=== PATIENT | female | born 1970 | race Caucasian/White ===

== ENCOUNTER 2016-09-13 16:45 | Inpatient (IN) | payer OTHER ==
[2016-09-13 16:45] VITALS: BMI 23.3
[2016-09-13] MEDS ORDERED: Sodium Chloride 0.9% 1,000 ML IV STA ×2 (18:17→21:55)
--- NOTE | 2016-09-13 18:23 | ED PDOC ---
HPI: General Adult Time Seen by Provider: 09/13/16 18:09 Chief Complaint (Nursing): Back Pain Chief Complaint (Provider): LLQ Pain/Back Pain/Fever History Per: Patient History/Exam Limitations: no limitations Onset/Duration Of Symptoms: Days (x4) Current Symptoms Are (Timing): Still Present Additional Complaint(s): 18:10 Amna Pompa is a 45 year old female with a history of kidney stones that presents to the ED with a chief complaint lower abdominal pain that radiates to her back, along with an associated fever and diffuse myalgias. Patient states that she woke up yesterday morning with a fever and headache, and took Tylenol later in the day in an attempt to relieve her pain, but that it persisted nonetheless. She denies experiencing dysuria. PMD: Obi Guillen Past Medical History Reviewed: Historical Data, Nursing Documentation, Vital Signs Vital Signs: Last Vital Signs Temp 99.8 F H 09/16/16 07:51 Pulse 73 09/16/16 07:51 Resp 20 09/16/16 07:51 BP 107/70 09/16/16 07:51 Pulse Ox 97 09/16/16 07:51 - Medical History PMH: Kidney Stones - Surgical History Surgical History: - Family History Family History: States: Unknown Family Hx - Immunization History Hx Tetanus Toxoid Vaccination: No Hx Influenza Vaccination: No Hx Pneumococcal Vaccination: No - Home Medications Home Medications: Ambulatory Orders Medication Instructions Recorded Ibuprofen [Advil] 200 mg PO Q8 PRN 02/06/14 Acetaminophen [Tylenol 325mg tab] 650 mg PO Q4 PRN 09/13/16 - Allergies Allergies/Adverse Reactions: Allergies Allergy/AdvReac Type Severity Reaction Status Date / Time No Known Allergies Allergy Verified 09/16/16 15:50 Review of Systems Constitutional: Positive for: Fever, Other (diffuse myalgias) Gastrointestinal: Positive for: Abdominal Pain (lower abdominal pain) Genitourinary Female: Negative for: Dysuria Musculoskeletal: Positive for: Back Pain (lower back pain) Neurological: Positive for: Headache Physical Exam - Reviewed Nursing Documentation Reviewed: Yes Vital Signs Reviewed: Yes - Physical Exam Appears: Positive for: Non-toxic, No Acute Distress Head Exam: Positive for: ATRAUMATIC, NORMOCEPHALIC Skin: Positive for: Normal Color, Warm Gastrointestinal/Abdominal: Positive for: Soft, Tenderness (mild generalized tenderness, most prominent in LLQ). Negative for: Guarding, Rebound Back: Positive for: L CVA Tenderness Neurologic/Psych: Positive for: Alert, Oriented - Laboratory Results Result Diagrams: 09/16/16 05:20 09/16/16 05:20 - ECG O2 Sat by Pulse Oximetry: 98 (RA) Pulse Ox Interpretation: Normal Medical Decision Making Medical Decision Makin:16 Initial Impression: Pyelonephritis vs. UTI vs. Kidney Stone Initial Impression: * CBC * CMP * PTT * PT * Urine * Urine dip * Urine Culture * Urinalysis * Blood Culture * VBG Shock Panel * EKG * CT Scan A/P w/o PO or IV Contrast * Morphine 2 mg IV * Sodium Chloride 1000 mL at 1000 mLs/hr * Tylenol 650 mg PO * Reevaluation Scribe Attestation: Documented by Johanne Keene, acting as a scribe for Maddie Mcdonald MD. Provider Scribe Attestation: All medical record entries made by the Scribe were at my direction and personally dictated by me. I have reviewed the chart and agree that the record accurately reflects my personal performance of the history, physical exam, medical decision making, and the department course for this patient. I have also personally directed, reviewed, and agree with the discharge instructions and disposition Disposition - Clinical Impression Clinical Impression: UTI (urinary tract infection), Sepsis, Pyelonephritis - Disposition Disposition: Transfer of Care Disposition Time: 19:00 Condition: FAIR Patient Signed Over To: Cindy Benitez
[2016-09-13 18:57] LABS: BASO % 0.2 % (0.0-2.0); HEMATOCRIT 37.5 % (34.0-47.0); LYMPH # 0.8 K/uL (1.0-4.3); LYMPH % 5.2 % (20.0-40.0); MEAN CORPUSCULAR HEMOGLOBIN 28.3 pg (27.0-31.0); MEAN CORPUSCULAR HGB CONC 32.2 g/dL (33.0-37.0); MEAN PLATELET VOLUME 8.3 fl (7.2-11.7); MONO # 1.4 K/uL (0.0-0.8); MONO % 8.7 % (0.0-10.0); NEUT # 13.4 K/uL (1.8-7.0); NEUT % 85.9 % (50.0-75.0); NRBC % 0.1 % (0.0-0.0); PLATELET COUNT 229 K/uL (130-400); RED CELL DISTRIBUTION WIDTH 13.1 % (11.5-14.5); WHITE BLOOD COUNT 15.6 K/uL (4.8-10.8)
[2016-09-13 19:06] LABS: VENOUS BLOOD GAS BASE EXCESS 0.3 mmol/L (0.0-2.0); VENOUS BLOOD GAS PCO2 42 mmHg (40-60); VENOUS BLOOD PH 7.39 (7.32-7.43)
[2016-09-13 19:12] LABS: ALKALINE PHOSPHATASE 114 U/L (38-126); ALT/SGPT 23 U/L (9-52); AST/SGOT 29 U/L (14-36); BILIRUBIN,TOTAL 0.9 mg/dl (0.2-1.3); BLOOD UREA NITROGEN 11 mg/dl (7-17); CARBON DIOXIDE 21 mmol/L (22-30); CHLORIDE 104 mmol/L (98-107); GFR AFRICAN-AMERICAN > 60; GLUCOSE,RANDOM 111 mg/dL (65-105); POTASSIUM 3.5 MMOL/L (3.6-5.0); SODIUM 139 mmol/l (132-148); TOTAL PROTEIN 7.6 G/DL (6.3-8.2)
[2016-09-13 19:14] LABS: PARTIAL THROMBOPLASTIN TIME 29.3 SECONDS (23.3-32.5)
[2016-09-13 19:22] LABS: BASOPHIL 1 % (0-2); NEUTROPHIL 85 % (42-75); TOTAL CELLS COUNTED 100
[2016-09-13] MEDS ORDERED: Potassium Chloride 20 mEq ER Tab PO ONE (19:41)
[2016-09-13 19:43] LABS: RBC URINE 6 /hpf (0-3); URINE BACTERIA MOD (<OCC); URINE BILIRUBIN NEGATIVE (NEGATIVE); URINE BLOOD SMALL (NEGATIVE); URINE COLOR AMBER (YELLOW); URINE GLUCOSE (UA) NEG (Normal); URINE KETONE NEGATIVE (NEGATIVE); URINE LEUKOCYTE ESTERASE SMALL Leu/uL (Negative); URINE PROTEIN 30 mg/dL (NEGATIVE); WBC URINE 127 /hpf (0-5)
--- NOTE | 2016-09-13 19:44 | ED PDOC ---
- Laboratory Results Result Diagrams: 09/13/16 18:20 09/13/16 18:20 - ECG O2 Sat by Pulse Oximetry: 98 (RA) - Progress Re-evaluation Time: 22:06 Condition: Re-examined, Improving,but remains with symptoms Medical Decision Making Medical Decision Makin:00 Patient signed over to me by Dr. Maddie Mcdonald pending CT Abdomen and final disposition. FINDINGS: Lower thorax: Minimal atelectasis. ABDOMEN: Liver: Unremarkable. Gallbladder and bile ducts: No calcified stones. No ductal dilation. Pancreas: Unremarkable. No ductal dilation. Spleen: No splenomegaly. Adrenals: No mass. Kidneys and ureters: Apparent minimal stranding about kidneys and proximal ureters, nonspecific. Probable few RIGHT renal cysts. Several renal calculi. No hydronephrosis. Stomach and bowel: No definite mural thickening. No obstruction. Appendix: Normal caliber. No inflammation. PELVIS: Bladder: Unremarkable. No stones. Reproductive: 1.0 x 1.0 x 3.6 cm hypodense lesion within LEFT ovary. RIGHT ovarian follicles. ABDOMEN and PELVIS: Intraperitoneal space: No significant fluid collection. No free air. Bones/joints: No acute fracture. Soft tissues: Tiny umbilical hernia containing fat. Vasculature: Few rounded calcifications within pelvis, likely phleboliths. No aortic aneurysm. Lymph nodes: No pathologically enlarged lymph nodes. IMPRESSION: 1. Probable LEFT ovarian cyst. Consider ultrasound. 2. Nonobstructing renal calculi. 3. Minimal perinephric/periureteral stranding. Correlate with urinalysis to exclude infection. 4. Incidental/non-acute findings are described above Patient has SIRS criteria with UTI and normal lactate. Dx UTI, sepsis. Scribe Attestation: Documented by Johanne Keene, acting as a scribe for Cindy Benitez MD. Provider Scribe Attestation: All medical record entries made by the Scribe were at my direction and personally dictated by me. I have reviewed the chart and agree that the record accurately reflects my personal performance of the history, physical exam, medical decision making, and the department course for this patient. I have also personally directed, reviewed, and agree with the discharge instructions and disposition Disposition Discussed With DrMariam: Obi Guillen Doctor Will See Patient In The: ED Counseled Patient/Family Regarding: Studies Performed, Diagnosis, Need For Followup - Clinical Impression Clinical Impression: UTI (urinary tract infection), Sepsis, Pyelonephritis - POA Present On Arrival: None - Disposition Disposition: Admitted as In-Patient Disposition Time: 20:30 Condition: FAIR
--- NOTE | 2016-09-13 21:31 | CT ---
EXAM: CT Abdomen and Pelvis Without Intravenous Contrast CLINICAL HISTORY: 45 years old, female; Pain; Abdominal pain; Localized; Left; Additional info: L flank pain, fever, hematuria TECHNIQUE: Axial computed tomography images of the abdomen and pelvis without intravenous contrast. This CT exam was performed using one or more of the following dose reduction techniques: automated exposure control, adjustment of the mA and/or kV according to patient size, and/or use of iterative reconstruction technique. Coronal and sagittal reformatted images were created and reviewed. COMPARISON: CT - ABD PELVIS W/O PO OR IV CONT 12/05/2015 11:42:11 PM FINDINGS: Lower thorax: Minimal atelectasis. ABDOMEN: Liver: Unremarkable. Gallbladder and bile ducts: No calcified stones. No ductal dilation. Pancreas: Unremarkable. No ductal dilation. Spleen: No splenomegaly. Adrenals: No mass. Kidneys and ureters: Apparent minimal stranding about kidneys and proximal ureters, nonspecific. Probable few RIGHT renal cysts. Several renal calculi. No hydronephrosis. Stomach and bowel: No definite mural thickening. No obstruction. Appendix: Normal caliber. No inflammation. PELVIS: Bladder: Unremarkable. No stones. Reproductive: 1.0 x 1.0 x 3.6 cm hypodense lesion within LEFT ovary. RIGHT ovarian follicles. ABDOMEN and PELVIS: Intraperitoneal space: No significant fluid collection. No free air. Bones/joints: No acute fracture. Soft tissues: Tiny umbilical hernia containing fat. Vasculature: Few rounded calcifications within pelvis, likely phleboliths. No aortic aneurysm. Lymph nodes: No pathologically enlarged lymph nodes. IMPRESSION: 1. Probable LEFT ovarian cyst. Consider ultrasound. 2. Nonobstructing renal calculi. 3. Minimal perinephric/periureteral stranding. Correlate with urinalysis to exclude infection. 4. Incidental/non-acute findings are described above.
[2016-09-13] MEDS ORDERED: Piperacillin/Tazobact 3.375 GM in Sodium Chloride 0.9% 100 ML IVPB SCH (23:45)
[2016-09-14] MEDS: Dextrose 5%/0.9% NS 1,000 ML IV SCH ×3 (02:33→23:20)
[2016-09-14 07:40] LABS: BLOOD UREA NITROGEN 9 mg/dl (7-17); CALCIUM 8.1 mg/dL (8.4-10.2); CARBON DIOXIDE 19 mmol/L (22-30); CHLORIDE 109 mmol/L (98-107); GFR AFRICAN-AMERICAN > 60; GLUCOSE,RANDOM 118 mg/dL (65-105); HEMATOCRIT 33.9 % (34.0-47.0); MEAN CORPUSCULAR HGB CONC 31.8 g/dL (33.0-37.0); POTASSIUM 3.4 MMOL/L (3.6-5.0); RED CELL DISTRIBUTION WIDTH 13.2 % (11.5-14.5); SODIUM 140 mmol/l (132-148); WHITE BLOOD COUNT 19.3 K/uL (4.8-10.8)
[2016-09-14] MEDS: Enoxaparin 40 mg Syringe SC SCH (09:59)
--- NOTE | 2016-09-14 10:29 | CP.PCM.CON ---
History of Present Illness - History of Present Illness History of Present Illness: 45 year old female with a history of kidney stones that presents to the ED with a chief complaint lower abdominal pain that radiates to her back, along with an associated fever and diffuse myalgias. Patient states that she woke up Tuesday morning with a fever and headache, no neck stiffness no photophobia no burning + flank pain > left Has renal stranding on CT s/p code sepsis Review of Systems - Constitutional Constitutional: As Per HPI, Anorexia, Malaise - EENT Eyes: absent: As Per HPI, Blind Spots, Blurred Vision, Change in Vision, Decreased Night Vision, Diplopia, Discharge, Dry Eye, Exophthalmos, Floaters, Irritation, Itchy Eyes, Loss of Peripheral Vision, Pain, Photophobia, Requires Corrective Lenses, Sees Flashes, Spots in Vision, Tunnel Vision, Other Visual Disturbances, Loss of Vision, Other Ears: absent: As Per HPI, Decreased Hearing, Ear Discharge, Ear Pain, Tinnitus, Abnormal Hearing, Disequilibrium, Dizziness, Other Nose/Mouth/Throat: absent: As Per HPI, Epistaxis, Nasal Congestion, Nasal Discharge, Nasal Obstruction, Nasal Trauma, Nose Pain, Post Nasal Drip, Sinus Pain, Sinus Pressure, Bleeding Gums, Change in Voice, Dental Pain, Dry Mouth, Dysphagia, Halitosis, Hoarsness, Lip Swelling, Mouth Lesions, Mouth Pain, Odynophagia, Sore Throat, Throat Swelling, Tongue Swelling, Facial Pain, Neck Pain, Neck Mass, Other - Breasts Breasts: absent: As Per HPI, Change in Shape, Mass, Pain, Nipple Discharge, Nipple Inversion, Skin Changes, Swelling, Other - Cardiovascular Cardiovascular: absent: As Per HPI, Acrocyanosis, Chest Pain, Chest Pain at Rest , Chest Pain with Activity, Claudication, Diaphoresis, Dyspnea, Dyspnea on Exertion, Edema, Irregular Heart Rhythm, Pain Radiating to Arm/Neck/Jaw, Leg Edema, Leg Ulcers, Lightheadedness, Orthopnea, Palpitations, Paroxysmal Nocturnal Dyspnea, Pedal Edema, Radiating Pain, Rapid Heart Rate, Slow Heart Rate, Syncope, Other - Respiratory Respiratory: absent: As Per HPI, Cough, Dyspnea, Hemoptysis, Dyspnea on Exertion , Wheezing, Snoring, Stridor, Pain on Inspiration, Chest Congestion, Excessive Mucous Production, Change in Mucous Color, Pain with Coughing, Other - Gastrointestinal Gastrointestinal: As Per HPI - Genitourinary Genitourinary: As Per HPI - Reproductive: Female Reproductive:Female: absent: As Per HPI, Amenorrhea, Amenorrhea/ Control, Currently Menstual, Cycle <21 Days, Cycle >35 Days, Cycle Variable, Menses 1-7 Days, Menses >/= 8 Days, Menses Variable, Cycle > 4 Weeks Between, No Menses for 6 Months, Heavy Menses, Light Menses, Normal Menses, Spotting Between Cycles , S/P Hysterectomy, Menopausal, Post Menopausal, Premenarche, Abnormal Vaginal Bleeding, Dysmenorrhea, Dyspareunia, Genital Lesions, Genital Pruritis, Pelvic Pain, Prolapse Symptoms, Sexual Dysfunction, Vaginal Discharge, Vaginal Dryness , Vaginal Odor, Vaginal Pruritis, Other - Menstruation Menstruation: absent: As Per HPI, Amenorrhea, Amenorrhea/ Control, Currently Menstual, Cycle <21 Days, Cycle >35 Days, Cycle Variable, Menses 1-7 Days, Menses >/= 8 Days, Menses Variable, Cycle > 4 Weeks Between, No Menses for 6 Months, Heavy Menses, Light Menses, Normal Menses, Spotting Between Cycles , S/P Hysterectomy, Menopausal, Post Menopausal, Premenarche, Abnormal Vaginal Bleeding, Dysmenorrhea, Other - Musculoskeletal Musculoskeletal: absent: As Per HPI, Abnormal Gait, Arthralgias, Atrophy, Back Pain, Deformity, Joint Swelling, Limited Range of Motion, Loss of Height, Muscle Cramps, Muscle Weakness, Myalgias, Neck Pain, Numbness, Radiating Pain into Limb, Stiffness, Tingling, Other - Integumentary Integumentary: absent: As Per HPI, Acne, Alopecia, Bleeding Lesions, Change in Hair, Change in Nails, Change in Pigmentation, Changing Lesions, Dry Skin, Erythema, Furuncle, Hirsutism, Lesions, New Lesions, Non-Healing Lesions, Photosensitivity, Pruritus, Rash, Skin Pain, Skin Ulcer, Sores, Striae, Swelling , Unusual Bruising, Wounds, Jaundice, Other - Neurological Neurological: absent: As Per HPI, Abnormal Gait, Abnormal Hearing, Abnormal Movements, Abnormal Speech, Behavioral Changes, Burning Sensations, Confusion, Convulsions, Disequilibrium, Dizziness, Numbness, Focal Weakness, Frequent Falls , Headaches, Lack of Coordination, Loss of Vision, Memory Loss, Paresthesias, Radicular Pain, Restless Legs, Sensory Deficit, Syncope, Tingling, Tremor, Vertigo, Weakness, Other Visual Disturbances, Other - Psychiatric Psychiatric: absent: As Per HPI, Abnormal Sleep Pattern, Anhedonia, Anxiety, Auditory Hallucinations, Behavioral Changes, Change in Appetite, Change in Libido, Confusion, Depression, Difficulty Concentrating, Hallucinations, Homicidal Ideation, Hopelessness, Irritability, Memory Loss, Mood Swings, Panic Attacks, Paranoia, Suicidal Ideation, Visual Hallucinations, Tactile Hallucinations, Other - Endocrine Endocrine: absent: As Per HPI, Change in Body Appearance, Change in Libido, Cold Intolorance, Deepening of Voice, Excessive Sweating, Fatigue, Flushing, Heat Intolorance, Increase in Ring/Shoe/Hat Size, Palpitations, Polydipsia, Polyphagia, Polyuria, Other - Hematologic/Lymphatic Hematologic: absent: As Per HPI, Easy Bleeding, Easy Bruising, Lymphadenopathy, Other Past Patient History - Infectious Disease Hx of Infectious Diseases: None - Past Medical History & Family History Past Medical History?: Yes - Past Social History Smoking Status: Never Smoked - CARDIAC Hx Cardiac Disorders: No - RENAL Hx Kidney Stones: Yes (6 years ago) - MUSCULOSKELETAL/RHEUMATOLOGICAL Hx Back Pain: Yes (acute, started 09/13/16) Hx Falls: Yes - PSYCHIATRIC Hx Substance Use: No - SURGICAL HISTORY Hx Surgeries: Yes Hx Section: Yes (x 2) - ANESTHESIA Hx Anesthesia: Yes Hx Anesthesia Reactions: No Hx Malignant Hyperthermia: No Meds Allergies/Adverse Reactions: Allergies Allergy/AdvReac Type Severity Reaction Status Date / Time No Known Allergies Allergy Verified 09/13/16 17:07 - Medications Medications: Current Medications Acetaminophen (Tylenol 325mg Tab) 650 mg PO Q6 PRN PRN Reason: Pain, Mild (1-3) Last Admin: 09/14/16 06:28 Dose: 650 mg Enoxaparin Sodium (Lovenox) 40 mg SC DAILY [facility] PRN Reason: Protocol Last Admin: 09/14/16 09:59 Dose: 40 mg Piperacillin Sod/Tazobactam (Sod 3.375 gm/ Sodium Chloride) 100 mls @ 100 mls/ hr IVPB Q12 [facility] Last Admin: 09/14/16 00:04 Dose: 100 mls/hr Dextrose/Sodium Chloride (Dextrose 5%/0.9% Ns 1000 Ml) 1,000 mls @ 85 mls/hr IV [id number] [facility] Stop: 09/14/16 23:46 Last Admin: 09/14/16 02:33 Dose: 85 mls/hr Pantoprazole Sodium (Protonix Inj) 40 mg IVP DAILY [facility] Last Admin: 09/14/16 10:00 Dose: 40 mg Physical Exam - Constitutional Appears: Toxic - Head Exam Head Exam: ATRAUMATIC, NORMAL INSPECTION, NORMOCEPHALIC - Eye Exam Eye Exam: EOMI, PERRL. absent: Scleral icterus - ENT Exam ENT Exam: Mucous Membranes Dry, Normal External Ear Exam - Neck Exam Neck exam: Negative for: Lymphadenopathy, Thyromegaly - Respiratory Exam Respiratory Exam: Decreased Breath Sounds, Clear to Auscultation Bilateral - Cardiovascular Exam Cardiovascular Exam: REGULAR RHYTHM, +S1, +S2 - GI/Abdominal Exam GI & Abdominal Exam: Diminished Bowel Sounds, Distended, Guarding, Soft. absent : Organomegaly, Rebound, Rigid - Rectal Exam Rectal Exam: Deferred - Exam Exam: NORMAL INSPECTION - Extremities Exam Extremities exam: Positive for: pedal pulses present. Negative for: calf tenderness, pedal edema, tenderness - Back Exam Back exam: CVA tenderness (L), CVA tenderness (R). absent: paraspinal tenderness, rash noted - Neurological Exam Neurological exam: Alert, CN II-XII Intact, Oriented x3, Reflexes Normal - Psychiatric Exam Psychiatric exam: Normal Mood - Skin Skin Exam: Dry, Intact Results - Vital Signs Recent Vital Signs: Last Vital Signs Temp 100.5 F H 09/14/16 08:34 Pulse 95 H 09/14/16 08:34 Resp 20 09/14/16 08:34 BP 92/60 L 09/14/16 08:34 Pulse Ox 98 09/14/16 08:34 - Labs Result Diagrams: 09/14/16 05:35 09/14/16 05:35 Labs: Laboratory Results - last 24 hr 09/14/16 05:35 WBC 19.3 H RBC 3.86 Hgb 10.8 L Hct 33.9 L MCV 88.0 MCH 28.0 MCHC 31.8 L RDW 13.2 Plt Count 215 Sodium 140 Potassium 3.4 L Chloride 109 H Carbon Dioxide 19 L Anion Gap 15 BUN 9 Creatinine 0.6 L Est GFR ( Amer) > 60 Est GFR (Non-Af Amer) > 60 Random Glucose 118 H Calcium 8.1 L Assessment & Plan (1) Pyelonephritis Status: Acute (2) Sepsis Status: Acute (3) UTI (urinary tract infection) Status: Acute (4) Abdominal pain Status: Acute (5) Ovarian cyst Status: Acute (6) Renal calculi Status: Acute - Assessment and Plan (Free Text) Assessment: cont iv antibotics stat eval
[2016-09-14] MEDS: Meropenem 1 GM in Sodium Chloride 0.9% 100 ML IVPB SCH ×2 (11:34→16:29)
[2016-09-14] MEDS ORDERED: Potassium Chloride 20 mEq/15 ml LIQ UD PO ONE ×2 (14:01→15:09)
--- NOTE | 2016-09-14 14:20 | US ---
HISTORY: ovarian cyst COMPARISON: CT abdomen and pelvis from 09/13/2016 TECHNIQUE: Transabdominal pelvic ultrasound was performed. FINDINGS: UTERUS: Measures 8.7 x 4.6 x 6.0 cm. Anteverted and lobular in appearance. There is a 2.7 x 2.9 x 2.7 cm intramural fibroid in the midbody of the uterus along the anterior wall and to the right. ENDOMETRIUM: Measures 4 mm in diameter. Unremarkable. CERVIX: No cervical abnormality identified. RIGHT OVARY: Measures 2.7 x 2.1 x 2.1 cm. No solid mass. Normal flow. There is a 1.5 x 1.5 x 1.4 cm cyst. LEFT OVARY: Measures 4.7 x 3.7 x 3.9 cm. No solid mass. Normal flow. There is a 3.1 x 2.7 x 3.3 cm simple cyst. FREE FLUID: No significant free fluid noted. OTHER FINDINGS: None. IMPRESSION: 1. Solitary 2.9 cm intramural fibroid in the midbody of the uterus along the anterior wall and to the right. 2. 3.3 cm simple cyst in the left ovary.
[2016-09-14] MEDS ORDERED: Mineral Oil Enema 135 ml PR ONE (15:11)
--- NOTE | 2016-09-14 15:22 | CP.PCM.HP ---
History of Present Illness - History of Present Illness History of Present Illness: Patient presented in ER with general malaise, severe abdominal pain and lt flank pain irradiated to the groin. Hx of fever, shaking chills, urgency,CVA tenderness, poor appetite, constipation. Patient has long hx of nephrolytiasis, she underwent to lythothripsis. Still c/o severe pain in the lt flank. The ctscan was not performed with iv contrast, bat reveled same changes typical of pyelonephritis. Will change to liquid diet continue antibx no appendix pathology is present in the ct scan. If persistent pain will repeat the radiological test with iv studies. Still require analgesic rx. Present on Admission - Present on Admission Any Indicators Present on Admission: No Review of Systems - Constitutional Constitutional: Chills, Fever - EENT Eyes: As Per HPI Nose/Mouth/Throat: As Per HPI - Cardiovascular Cardiovascular: As Per HPI - Respiratory Respiratory: As Per HPI - Gastrointestinal Gastrointestinal: As Per HPI - Genitourinary Genitourinary: Dysuria, Flank Pain, Urinary Frequency, Urinary Urgency - Musculoskeletal Musculoskeletal: As Per HPI - Integumentary Integumentary: As Per HPI - Neurological Neurological: As Per HPI - Psychiatric Psychiatric: As Per HPI Past Patient History - Infectious Disease Hx of Infectious Diseases: None - Past Medical History & Family History Past Medical History?: Yes - Past Social History Smoking Status: Never Smoked - CARDIAC Hx Cardiac Disorders: No - RENAL Hx Kidney Stones: Yes (6 years ago) - MUSCULOSKELETAL/RHEUMATOLOGICAL Hx Back Pain: Yes (acute, started 09/13/16) Hx Falls: Yes - PSYCHIATRIC Hx Substance Use: No - SURGICAL HISTORY Hx Surgeries: Yes Hx Section: Yes (x 2) - ANESTHESIA Hx Anesthesia: Yes Hx Anesthesia Reactions: No Hx Malignant Hyperthermia: No Meds Allergies/Adverse Reactions: Allergies Allergy/AdvReac Type Severity Reaction Status Date / Time No Known Allergies Allergy Verified 09/13/16 17:07 Physical Exam - Constitutional Appears: In Acute Distress - Head Exam Head Exam: ATRAUMATIC, NORMAL INSPECTION, NORMOCEPHALIC - Eye Exam Eye Exam: EOMI, Normal appearance, PERRL Pupil Exam: NORMAL ACCOMODATION - ENT Exam ENT Exam: Mucous Membranes Moist - Neck Exam Neck exam: Positive for: Normal Inspection - Respiratory Exam Respiratory Exam: Clear to Auscultation Bilateral - Cardiovascular Exam Cardiovascular Exam: REGULAR RHYTHM, +S1, +S2 - GI/Abdominal Exam GI & Abdominal Exam: Tenderness Additional comments: + CVT with lt flank tenderness. - Rectal Exam Rectal Exam: Deferred - Extremities Exam Extremities exam: Positive for: normal inspection - Neurological Exam Neurological exam: Alert, CN II-XII Intact, Reflexes Normal - Psychiatric Exam Psychiatric exam: Anxious - Skin Skin Exam: Normal Color Results - Vital Signs Recent Vital Signs: Last Vital Signs Temp 98.3 F 09/14/16 11:52 Pulse 95 H 09/14/16 08:34 Resp 20 09/14/16 08:34 BP 92/60 L 09/14/16 08:34 Pulse Ox 98 09/14/16 08:34 - Labs Result Diagrams: 09/14/16 05:35 09/14/16 14:30 Labs: Laboratory Results - last 24 hr 09/14/16 09/14/16 05:35 14:30 WBC 19.3 H RBC 3.86 Hgb 10.8 L Hct 33.9 L MCV 88.0 MCH 28.0 MCHC 31.8 L RDW 13.2 Plt Count 215 Sodium 140 Potassium 3.4 L 3.1 L Chloride 109 H Carbon Dioxide 19 L Anion Gap 15 BUN 9 Creatinine 0.6 L Est GFR ( Amer) > 60 Est GFR (Non-Af Amer) > 60 Random Glucose 118 H Calcium 8.1 L Assessment & Plan (1) Pyelonephritis Status: Acute (2) Sepsis Status: Suspected (3) UTI (urinary tract infection) Status: Acute (4) Abdominal pain Status: Acute (5) Hypokalemia Status: Acute (6) Ovarian cyst Status: Chronic (7) Renal calculi Status: Chronic (8) Constipation Status: Acute (9) Fecal impaction Status: Acute - Assessment and Plan (Free Text) Plan: As above
--- NOTE | 2016-09-14 16:19 | RAD ---
PROCEDURE: CHEST RADIOGRAPH, 1 VIEW HISTORY: r/o pneumonia COMPARISON: None available. FINDINGS: LUNGS: The lungs are clear. PLEURA: No pneumothorax or pleural fluid seen. CARDIOVASCULAR: Normal. OSSEOUS STRUCTURES: No significant abnormalities. VISUALIZED UPPER ABDOMEN: Normal. OTHER FINDINGS: None. IMPRESSION: No active pulmonary disease.
--- NOTE | 2016-09-14 20:09 | CARD ---
APPROVED REPORT EKG Measurement Heart [id number] <Conclusion> Normal sinus rhythm Possible Left atrial enlargement Borderline ECG
[2016-09-14 21:14] LABS: MAGNESIUM 1.9 MG/DL (1.6-2.3)
[2016-09-14 21:37] LABS: T4 5.63 ug/dl (5.5-11.0)
[2016-09-14 21:51] LABS: THYROID STIMULATING HORMONE 3.09 mIU/ML (0.46-4.68)
[2016-09-15] MEDS: Meropenem 1 GM in Sodium Chloride 0.9% 100 ML IVPB SCH ×3 (00:53→16:15)
[2016-09-15 08:14] LABS: HEMATOCRIT 31.5 % (34.0-47.0); MEAN CELL VOLUME 88.2 fl (81.0-99.0); MEAN CORPUSCULAR HEMOGLOBIN 28.3 pg (27.0-31.0); MEAN CORPUSCULAR HGB CONC 32.1 g/dL (33.0-37.0); RED CELL DISTRIBUTION WIDTH 13.3 % (11.5-14.5); WHITE BLOOD COUNT 13.5 K/uL (4.8-10.8)
[2016-09-15 08:16] LABS: BLOOD UREA NITROGEN 4 mg/dl (7-17); CALCIUM 8.2 mg/dL (8.4-10.2); CARBON DIOXIDE 24 mmol/L (22-30); CHLORIDE 109 mmol/L (98-107); GFR AFRICAN-AMERICAN > 60; GLUCOSE,RANDOM 100 mg/dL (65-105); POTASSIUM 3.6 MMOL/L (3.6-5.0); SODIUM 143 mmol/l (132-148)
[2016-09-15] MEDS: Enoxaparin 40 mg Syringe SC SCH (08:48)
[2016-09-15] MEDS: Dextrose 5%/0.9% NS 1,000 ML IV SCH ×2 (08:52→20:36)
--- NOTE | 2016-09-15 09:51 | CP.PCM.PN ---
Subjective - Date & Time of Evaluation Date of Evaluation: 09/14/16 Time of Evaluation: 16:00 - Subjective Subjective: Urology. Pt seen today for uti/pyelonephritis.First such episode for this patient. She has no dysuria or difficulty voiding. Flank discomfort deminished. She is on iv antibiotic coverage with Urine C/S pending. Cont current tx protocol Objective - Vital Signs/Intake and Output Vital Signs (last 24 hours): Temp Pulse Resp BP Pulse Ox 99.5 F 99 H 20 108/67 90 L 09/15/16 08:14 09/15/16 08:14 09/15/16 08:14 09/15/16 08:14 09/15/16 08:14 - Medications Medications: Current Medications Acetaminophen (Tylenol 325mg Tab) 650 mg PO Q4 PRN PRN Reason: Pain, Mild (1-3) Last Admin: 09/15/16 00:52 Dose: 650 mg Docusate Sodium (Colace) 100 mg PO BID [facility] Last Admin: 09/15/16 08:49 Dose: 100 mg Enoxaparin Sodium (Lovenox) 40 mg SC DAILY [facility] PRN Reason: Protocol Last Admin: 09/15/16 08:48 Dose: 40 mg Meropenem 1 gm/ Sodium (Chloride) 100 mls @ 100 mls/hr IVPB Q8 [facility] Last Admin: 09/15/16 08:48 Dose: 100 mls/hr Pantoprazole Sodium (Protonix Inj) 40 mg IVP DAILY [facility] Last Admin: 09/15/16 08:45 Dose: 40 mg Tramadol HCl (Ultram) 50 mg PO Q6 PRN PRN Reason: Pain, moderate (4-7) Last Admin: 09/15/16 06:33 Dose: 50 mg - Labs Labs: 09/15/16 05:40 09/15/16 05:40 PT 11.7 SECONDS (9.6-11.2) H 09/13/16 18:20 INR 1.13 (0.92-1.08) H 09/13/16 18:20 APTT 29.3 SECONDS (23.3-32.5) 09/13/16 18:20
--- NOTE | 2016-09-15 12:27 | CP.PCM.PN ---
Subjective - Date & Time of Evaluation Date of Evaluation: 09/15/16 Time of Evaluation: 12:30 - Subjective Subjective: Patient general condition improving same abdominal discomfort. The culture are positive for gram neg. Patient with severe pyelinephritis will continue iv anti bx for at list 10 days. Objective - Vital Signs/Intake and Output Vital Signs (last 24 hours): Temp Pulse Resp BP Pulse Ox 99.5 F 99 H 20 108/67 90 L 09/15/16 08:14 09/15/16 08:14 09/15/16 08:14 09/15/16 08:14 09/15/16 08:14 - Medications Medications: Current Medications Acetaminophen (Tylenol 325mg Tab) 650 mg PO Q4 PRN PRN Reason: Pain, Mild (1-3) Last Admin: 09/15/16 00:52 Dose: 650 mg Docusate Sodium (Colace) 100 mg PO BID [facility] Last Admin: 09/15/16 08:49 Dose: 100 mg Enoxaparin Sodium (Lovenox) 40 mg SC DAILY [facility] PRN Reason: Protocol Last Admin: 09/15/16 08:48 Dose: 40 mg Meropenem 1 gm/ Sodium (Chloride) 100 mls @ 100 mls/hr IVPB Q8 [facility] Last Admin: 09/15/16 08:48 Dose: 100 mls/hr Pantoprazole Sodium (Protonix Inj) 40 mg IVP DAILY [facility] Last Admin: 09/15/16 08:45 Dose: 40 mg Tramadol HCl (Ultram) 50 mg PO Q6 PRN PRN Reason: Pain, moderate (4-7) Last Admin: 09/15/16 06:33 Dose: 50 mg - Labs Labs: 09/15/16 05:40 09/15/16 05:40 PT 11.7 SECONDS (9.6-11.2) H 09/13/16 18:20 INR 1.13 (0.92-1.08) H 09/13/16 18:20 APTT 29.3 SECONDS (23.3-32.5) 09/13/16 18:20 - Constitutional Appears: No Acute Distress - Head Exam Head Exam: ATRAUMATIC, NORMAL INSPECTION - Eye Exam Eye Exam: Normal appearance Pupil Exam: NORMAL ACCOMODATION - ENT Exam ENT Exam: Mucous Membranes Moist - Neck Exam Neck Exam: Full ROM - Respiratory Exam Respiratory Exam: Clear to Ausculation Bilateral - Cardiovascular Exam Cardiovascular Exam: REGULAR RHYTHM, +S1, +S2 - GI/Abdominal Exam GI & Abdominal Exam: Tenderness - Back Exam Back Exam: NORMAL INSPECTION - Neurological Exam Neurological Exam: Alert, Awake, CN II-XII Intact, Oriented x3 - Psychiatric Exam Psychiatric exam: Normal Affect - Skin Skin Exam: Normal Color Assessment and Plan (1) Pyelonephritis Status: Acute (2) Sepsis Status: Suspected (3) UTI (urinary tract infection) Status: Acute (4) Abdominal pain Status: Acute (5) Hypokalemia Status: Acute (6) Ovarian cyst Status: Chronic (7) Renal calculi Status: Chronic (8) Constipation Status: Acute (9) Fecal impaction Status: Acute (10) Euthyroid sick syndrome Status: Acute - Assessment and Plan (Free Text) Plan: Continue present rx.
--- NOTE | 2016-09-15 16:31 | CP.PCM.PN ---
Subjective - Date & Time of Evaluation Date of Evaluation: 09/15/16 Time of Evaluation: 08:00 - Subjective Subjective: rx in progress fever + c/s pending merrem renewed Objective - Vital Signs/Intake and Output Vital Signs (last 24 hours): Temp Pulse Resp BP Pulse Ox 99.5 F 99 H 20 108/67 90 L 09/15/16 08:14 09/15/16 08:14 09/15/16 08:14 09/15/16 08:14 09/15/16 08:14 - Medications Medications: Current Medications Acetaminophen (Tylenol 325mg Tab) 650 mg PO Q4 PRN PRN Reason: Pain, Mild (1-3) Last Admin: 09/15/16 00:52 Dose: 650 mg Docusate Sodium (Colace) 100 mg PO BID [facility] Last Admin: 09/15/16 08:49 Dose: 100 mg Enoxaparin Sodium (Lovenox) 40 mg SC DAILY [facility] PRN Reason: Protocol Last Admin: 09/15/16 08:48 Dose: 40 mg Meropenem 1 gm/ Sodium (Chloride) 100 mls @ 100 mls/hr IVPB Q8 [facility] Last Admin: 09/15/16 16:15 Dose: 100 mls/hr Pantoprazole Sodium (Protonix Inj) 40 mg IVP DAILY [facility] Last Admin: 09/15/16 08:45 Dose: 40 mg Tramadol HCl (Ultram) 50 mg PO Q6 PRN PRN Reason: Pain, moderate (4-7) Last Admin: 09/15/16 06:33 Dose: 50 mg - Labs Labs: 09/15/16 05:40 09/15/16 05:40 PT 11.7 SECONDS (9.6-11.2) H 09/13/16 18:20 INR 1.13 (0.92-1.08) H 09/13/16 18:20 APTT 29.3 SECONDS (23.3-32.5) 09/13/16 18:20 - Constitutional Appears: Non-toxic, Chronically Ill - Head Exam Head Exam: NORMOCEPHALIC - Eye Exam Eye Exam: absent: Scleral icterus - ENT Exam ENT Exam: Mucous Membranes Dry - Neck Exam Neck Exam: absent: Lymphadenopathy - Respiratory Exam Respiratory Exam: Decreased Breath Sounds - Cardiovascular Exam Cardiovascular Exam: REGULAR RHYTHM - GI/Abdominal Exam GI & Abdominal Exam: Distended Assessment and Plan (1) Pyelonephritis Status: Acute (2) Sepsis Status: Suspected (3) UTI (urinary tract infection) Status: Acute (4) Abdominal pain Status: Acute (5) Ovarian cyst Status: Chronic (6) Renal calculi Status: Chronic
[2016-09-16] MEDS: Meropenem 1 GM in Sodium Chloride 0.9% 100 ML IVPB SCH ×2 (00:50→08:48)
[2016-09-16] MEDS: Dextrose 5%/0.9% NS 1,000 ML IV SCH (05:52)
[2016-09-16 07:35] LABS: HEMATOCRIT 29.9 % (34.0-47.0); MEAN CELL VOLUME 87.1 fl (81.0-99.0); MEAN CORPUSCULAR HEMOGLOBIN 28.2 pg (27.0-31.0); MEAN CORPUSCULAR HGB CONC 32.4 g/dL (33.0-37.0); RED CELL DISTRIBUTION WIDTH 13.1 % (11.5-14.5); WHITE BLOOD COUNT 8.1 K/uL (4.8-10.8)
[2016-09-16 07:46] LABS: BLOOD UREA NITROGEN 3 mg/dl (7-17); CALCIUM 8.2 mg/dL (8.4-10.2); CARBON DIOXIDE 24 mmol/L (22-30); CHLORIDE 108 mmol/L (98-107); GFR AFRICAN-AMERICAN > 60; GLUCOSE,RANDOM 97 mg/dL (65-105); POTASSIUM 3.5 MMOL/L (3.6-5.0); SODIUM 143 mmol/l (132-148)
[2016-09-16 07:53] VITALS: BP 107/70; PULSE 73; RESP 20; TEMP 99.8
[2016-09-16] MEDS: Enoxaparin 40 mg Syringe SC SCH (08:47)
[2016-09-16] MEDS ORDERED: Lactobacillus Acidophilus 500 MU Cap PO SCH (10:45)
--- NOTE | 2016-09-16 17:55 | CP.PCM.DIS ---
Provider - Provider Date of Admission: 09/13/16 22:46 Attending physician: Obi Guillen MD Time Spent in preparation of Discharge (in minutes): 30 Diagnosis - Discharge Diagnosis (1) Pyelonephritis Status: Acute (2) Sepsis Status: Suspected (3) UTI (urinary tract infection) Status: Acute (4) Abdominal pain Status: Acute (5) Hypokalemia Status: Acute (6) Ovarian cyst Status: Chronic (7) Renal calculi Status: Chronic (8) Constipation Status: Acute (9) Fecal impaction Status: Acute (10) Euthyroid sick syndrome Status: Acute Hospital Course - Lab Results Lab Results: Most Recent Lab Values WBC 8.1 K/uL (4.8-10.8) 09/16/16 05:20 RBC 3.43 Mil/uL (3.80-5.20) L 09/16/16 05:20 Hgb 9.7 g/dL (12.0-16.0) L 09/16/16 05:20 Hct 29.9 % (34.0-47.0) L 09/16/16 05:20 MCV 87.1 fl (81.0-99.0) 09/16/16 05:20 MCH 28.2 pg (27.0-31.0) 09/16/16 05:20 MCHC 32.4 g/dL (33.0-37.0) L 09/16/16 05:20 RDW 13.1 % (11.5-14.5) 09/16/16 05:20 Plt Count 206 K/uL (130-400) 09/16/16 05:20 MPV 8.3 fl (7.2-11.7) 09/13/16 18:20 Neut % (Auto) 85.9 % (50.0-75.0) H 09/13/16 18:20 Lymph % (Auto) 5.2 % (20.0-40.0) L 09/13/16 18:20 [place] % (Auto) 8.7 % (0.0-10.0) 09/13/16 18:20 Eos % (Auto) 0.0 % (0.0-4.0) 09/13/16 18:20 Baso % (Auto) 0.2 % (0.0-2.0) 09/13/16 18:20 Neut # 13.4 K/uL (1.8-7.0) H 09/13/16 18:20 Lymph # 0.8 K/uL (1.0-4.3) L 09/13/16 18:20 [place] # 1.4 K/uL (0.0-0.8) H 09/13/16 18:20 Eos # 0.0 K/uL (0.0-0.7) 09/13/16 18:20 Baso # 0.0 K/uL (0.0-0.2) 09/13/16 18:20 Neutrophils % (Manual) 85 % (42-75) H 09/13/16 18:20 Lymphocytes % (Manual) 6 % (20-50) L 09/13/16 18:20 Monocytes % (Manual) 8 % (0-10) 09/13/16 18:20 Basophils % (Manual) 1 % (0-2) 09/13/16 18:20 Platelet Estimate Normal (NORMAL) 09/13/16 18:20 Hypochromasia (manual) Slight 09/13/16 18:20 Anisocytosis (manual) Slight 09/13/16 18:20 PT 11.7 SECONDS (9.6-11.2) H 09/13/16 18:20 INR 1.13 (0.92-1.08) H 09/13/16 18:20 APTT 29.3 SECONDS (23.3-32.5) 09/13/16 18:20 pO2 23 mm/Hg (30-55) L 09/13/16 19:05 VBG pH 7.39 (7.32-7.43) 09/13/16 19:05 VBG pCO2 42 mmHg (40-60) 09/13/16 19:05 VBG HCO3 23.8 mmol/L 09/13/16 19:05 VBG Total CO2 26.7 mmol/L (22-28) 09/13/16 19:05 VBG O2 Sat (Calc) 44.5 % (40-65) 09/13/16 19:05 VBG Base Excess 0.3 mmol/L (0.0-2.0) 09/13/16 19:05 VBG Potassium 3.2 mmol/L (3.6-5.2) L 09/13/16 19:05 Sodium 137.0 mmol/L (132-148) 09/13/16 19:05 Chloride 110.0 mmol/L (98-107) H 09/13/16 19:05 Glucose 115 mg/dL (65-105) H 09/13/16 19:05 Lactate 1.0 mmol/L (0.7-2.1) 09/13/16 19:05 FiO2 21.0 % 09/13/16 19:05 Sodium 143 mmol/l (132-148) 09/16/16 05:20 Potassium 3.5 MMOL/L (3.6-5.0) L 09/16/16 05:20 Chloride 108 mmol/L (98-107) H 09/16/16 05:20 Carbon Dioxide 24 mmol/L (22-30) 09/16/16 05:20 Anion Gap 15 (10-20) 09/16/16 05:20 BUN 3 mg/dl (7-17) L 09/16/16 05:20 Creatinine 0.5 mg/dL (0.7-1.2) L 09/16/16 05:20 Est GFR ( Amer) > 60 09/16/16 05:20 Est GFR (Non-Af Amer) > 60 09/16/16 05:20 Random Glucose 97 mg/dL (65-105) 09/16/16 05:20 Calcium 8.2 mg/dL (8.4-10.2) L 09/16/16 05:20 Ionized Calcium 5.0 mg/dL (4.80-5.60) 09/14/16 20:45 Magnesium 1.9 MG/DL (1.6-2.3) 09/14/16 20:45 Total Bilirubin 0.9 mg/dl (0.2-1.3) 09/13/16 18:20 AST 29 U/L (14-36) 09/13/16 18:20 ALT 23 U/L (9-52) 09/13/16 18:20 Alkaline Phosphatase 114 U/L (38-126) 09/13/16 18:20 Total Protein 7.6 G/DL (6.3-8.2) 09/13/16 18:20 Albumin 3.8 g/dL (3.5-5.0) 09/13/16 18:20 Globulin 3.8 gm/dL (2.2-3.9) 09/13/16 18:20 Albumin/Globulin Ratio 1.0 (1.0-2.1) 09/13/16 18:20 Amylase 49 U/L (30-110) 09/14/16 20:45 Lipase 39 U/L (23-300) 09/14/16 20:45 Thyroxine (T4) 5.63 ug/dl (5.5-11.0) 09/14/16 20:45 Total T3 0.699 nmol/L (1.49-2.60) L 09/14/16 20:45 TSH 3rd Generation 3.09 mIU/ML (0.46-4.68) 09/14/16 20:45 PTH Intact Whole [place] 42 pg/mL (14-64) 09/14/16 20:45 Venous Blood Potassium 3.2 mmol/L (3.6-5.2) L 09/13/16 19:05 Urine Color [place] (YELLOW) 09/13/16 19:15 Urine Clarity Slighty-cloudy (Clear) 09/13/16 19:15 Urine pH 6.0 (5.0-8.0) 09/13/16 19:15 Ur Specific [place] 1.014 (1.003-1.030) 09/13/16 19:15 Urine Protein 30 mg/dL (NEGATIVE) 09/13/16 19:15 Urine Glucose (UA) Neg mg/dL (Normal) 09/13/16 19:15 Urine Ketones Negative mg/dL (NEGATIVE) 09/13/16 19:15 Urine Blood Small (NEGATIVE) 09/13/16 19:15 Urine Nitrate Positive (NEGATIVE) H 09/13/16 19:15 Urine Bilirubin Negative (NEGATIVE) 09/13/16 19:15 Urine Urobilinogen 4.0 mg/dL (0.2-1.0) H 09/13/16 19:15 Ur Leukocyte Esterase [place]/uL (Negative) 09/13/16 19:15 Urine RBC (Auto) 6 /hpf (0-3) H 09/13/16 19:15 Urine Microscopic WBC 127 /hpf (0-5) H 09/13/16 19:15 Ur Squamous Epith Cells < 1 /hpf (0-5) 04/03/17 19:15 Urine Bacteria Mod (<OCC) H 09/13/16 19:15 Hyaline Casts 0-2 /hpf (0-2) 09/13/16 19:15 - Hospital Course Hospital Course: Patient presented with sere symptomatic pyelonephytis. She responded to rx and dc to TCU for further rx. Discharge Exam - Head Exam Head Exam: NORMOCEPHALIC - Eye Exam Eye Exam: Normal appearance Pupil Exam: NORMAL ACCOMODATION - Respiratory Exam Respiratory Exam: Clear to PA & Lateral, NORMAL BREATHING PATTERN - Cardiovascular Exam Cardiovascular Exam: REGULAR RHYTHM, +S1, +S2 - GI/Abdominal Exam GI & Abdominal Exam: Normal Bowel Sounds - Extremities Exam Extremities exam: normal inspection - Neurological Exam Neurological exam: Alert, CN II-XII Intact, Normal Gait, Oriented x3, Reflexes Normal - Psychiatric Exam Psychiatric exam: Normal Affect Discharge Plan - Follow Up Plan Condition: FAIR Disposition: HOME/ ROUTINE
[2016-09-16] MEDS ORDERED: Potassium Chloride 20 mEq/15 ml LIQ UD PO ONE (18:03)
--- NOTE | 2016-09-16 21:21 | CP.PCM.CON ---
History of Present Illness - History of Present Illness History of Present Illness: 45 yo female admitted with abdominal pain. Found to have pyelonephritis. Has been having difficulty moving bowels. Review of Systems - Constitutional Constitutional: Chills - EENT Eyes: absent: Blurred Vision Ears: absent: Decreased Hearing Nose/Mouth/Throat: absent: Nasal Congestion - Cardiovascular Cardiovascular: absent: Chest Pain - Respiratory Respiratory: absent: Dyspnea - Gastrointestinal Gastrointestinal: As Per HPI Past Patient History - Infectious Disease Hx of Infectious Diseases: None - Past Medical History & Family History Past Medical History?: Yes - Past Social History Smoking Status: Never Smoked - CARDIAC Hx Cardiac Disorders: No - RENAL Hx Kidney Stones: Yes (6 years ago) - MUSCULOSKELETAL/RHEUMATOLOGICAL Hx Back Pain: Yes (acute, started 09/13/16) Hx Falls: Yes - PSYCHIATRIC Hx Substance Use: No - SURGICAL HISTORY Hx Surgeries: Yes Hx Section: Yes (x 2) - ANESTHESIA Hx Anesthesia: Yes Hx Anesthesia Reactions: No Hx Malignant Hyperthermia: No Meds Allergies/Adverse Reactions: Allergies Allergy/AdvReac Type Severity Reaction Status Date / Time No Known Allergies Allergy Verified 09/16/16 15:50 Physical Exam - Constitutional Appears: Non-toxic - Head Exam Head Exam: ATRAUMATIC - Eye Exam Eye Exam: Normal appearance - ENT Exam ENT Exam: Mucous Membranes Moist - Neck Exam Neck exam: Positive for: Normal Inspection - Respiratory Exam Respiratory Exam: Clear to Auscultation Bilateral - Cardiovascular Exam Cardiovascular Exam: REGULAR RHYTHM, +S1, +S2 - GI/Abdominal Exam GI & Abdominal Exam: Normal Bowel Sounds, Soft, Tenderness Additional comments: mild lower abdominal tenderness Results - Vital Signs Recent Vital Signs: Last Vital Signs Temp 99.8 F H 09/16/16 07:51 Pulse 73 09/16/16 07:51 Resp 20 09/16/16 07:51 BP 107/70 09/16/16 07:51 Pulse Ox 97 09/16/16 07:51 - Labs Result Diagrams: 09/16/16 05:20 09/16/16 05:20 Labs: Laboratory Results - last 24 hr 09/16/16 05:20 WBC 8.1 RBC 3.43 L Hgb 9.7 L Hct 29.9 L MCV 87.1 MCH 28.2 MCHC 32.4 L RDW 13.1 Plt Count 206 Sodium 143 Potassium 3.5 L Chloride 108 H Carbon Dioxide 24 Anion Gap 15 BUN 3 L Creatinine 0.5 L Est GFR ( Amer) > 60 Est GFR (Non-Af Amer) > 60 Random Glucose 97 Calcium 8.2 L Assessment & Plan (1) Abdominal pain Assessment and Plan: Possibly related to constipation. Will start llactulose 30 cc BID prn Status: Acute - Date & Time Date: 09/16/16 Time: 13:00
[2016-09-27 20:58] VITALS: O2SAT 98
== END 2016-09-16 16:01 | DRG 901 ==
LOC: H.ER 16:45 → H.ERHOLD 22:46 → H.MEDSURG1 09-14 01:30
PROVIDERS: ADMIT Internal Medicine; ATTEND Internal Medicine
DX: A41.9 Sepsis, unspecified organism (principal); N12 Tubulo-interstitial nephritis, not specified as acute or chronic; E87.6 Hypokalemia; K56.41 Fecal impaction; N83.209 Unspecified ovarian cyst, unspecified side; N20.0 Calculus of kidney; E07.81 Sick-euthyroid syndrome

== ENCOUNTER 2016-09-16 14:31 | Inpatient (IN) | payer OTHER ==
[2016-09-16 15:51] VITALS: BMI 27.8
[2016-09-16] MEDS ORDERED: Tuberculin 5 Units/0.1 ml Inj ID ONE (16:13)
[2016-09-16 16:39] VITALS: RESP 20
[2016-09-16] MEDS: Lactobacillus Acidophilus 500 MU Cap PO SCH (17:32)
[2016-09-16] MEDS ORDERED: Potassium Chloride 20 mEq ER Tab PO ONE (18:24)
--- NOTE | 2016-09-16 18:28 | CP.PCM.CON ---
History of Present Illness - History of Present Illness History of Present Illness: still spiking fevers has e coli in urine sens to rocephin con iv rx for at least 7 more days await eval Review of Systems - Constitutional Constitutional: As Per HPI - EENT Eyes: As Per HPI Ears: As Per HPI Nose/Mouth/Throat: As Per HPI - Breasts Breasts: absent: As Per HPI, Change in Shape, Mass, Pain, Nipple Discharge, Nipple Inversion, Skin Changes, Swelling, Other - Cardiovascular Cardiovascular: absent: As Per HPI, Acrocyanosis, Chest Pain, Chest Pain at Rest , Chest Pain with Activity, Claudication, Diaphoresis, Dyspnea, Dyspnea on Exertion, Edema, Irregular Heart Rhythm, Pain Radiating to Arm/Neck/Jaw, Leg Edema, Leg Ulcers, Lightheadedness, Orthopnea, Palpitations, Paroxysmal Nocturnal Dyspnea, Pedal Edema, Radiating Pain, Rapid Heart Rate, Slow Heart Rate, Syncope, Other - Respiratory Respiratory: absent: As Per HPI, Cough, Dyspnea, Hemoptysis, Dyspnea on Exertion , Wheezing, Snoring, Stridor, Pain on Inspiration, Chest Congestion, Excessive Mucous Production, Change in Mucous Color, Pain with Coughing, Other - Gastrointestinal Gastrointestinal: absent: As Per HPI, Abdominal Pain, Belching, Bloating, Change in Bowel Habits, Change in Stool Character, Coffee Ground Emesis, Constipation, Cramping, Diarrhea, Dyspepsia, Dysphagia, Early Satiety, Excessive Flatus, Fecal Incontinence, Heartburn, Hematemesis, Hematochezia, Loose Stools, Melena, Nausea, Odynophagia, Temesmus, Vomiting, Other - Genitourinary Genitourinary: As Per HPI - Reproductive: Female Reproductive:Female: absent: As Per HPI, Amenorrhea, Amenorrhea/ Control, Currently Menstual, Cycle <21 Days, Cycle >35 Days, Cycle Variable, Menses 1-7 Days, Menses >/= 8 Days, Menses Variable, Cycle > 4 Weeks Between, No Menses for 6 Months, Heavy Menses, Light Menses, Normal Menses, Spotting Between Cycles , S/P Hysterectomy, Menopausal, Post Menopausal, Premenarche, Abnormal Vaginal Bleeding, Dysmenorrhea, Dyspareunia, Genital Lesions, Genital Pruritis, Pelvic Pain, Prolapse Symptoms, Sexual Dysfunction, Vaginal Discharge, Vaginal Dryness , Vaginal Odor, Vaginal Pruritis, Other - Menstruation Menstruation: absent: As Per HPI, Amenorrhea, Amenorrhea/ Control, Currently Menstual, Cycle <21 Days, Cycle >35 Days, Cycle Variable, Menses 1-7 Days, Menses >/= 8 Days, Menses Variable, Cycle > 4 Weeks Between, No Menses for 6 Months, Heavy Menses, Light Menses, Normal Menses, Spotting Between Cycles , S/P Hysterectomy, Menopausal, Post Menopausal, Premenarche, Abnormal Vaginal Bleeding, Dysmenorrhea, Other - Musculoskeletal Musculoskeletal: absent: As Per HPI, Abnormal Gait, Arthralgias, Atrophy, Back Pain, Deformity, Joint Swelling, Limited Range of Motion, Loss of Height, Muscle Cramps, Muscle Weakness, Myalgias, Neck Pain, Numbness, Radiating Pain into Limb, Stiffness, Tingling, Other - Integumentary Integumentary: absent: As Per HPI, Acne, Alopecia, Bleeding Lesions, Change in Hair, Change in Nails, Change in Pigmentation, Changing Lesions, Dry Skin, Erythema, Furuncle, Hirsutism, Lesions, New Lesions, Non-Healing Lesions, Photosensitivity, Pruritus, Rash, Skin Pain, Skin Ulcer, Sores, Striae, Swelling , Unusual Bruising, Wounds, Jaundice, Other - Neurological Neurological: absent: As Per HPI, Abnormal Gait, Abnormal Hearing, Abnormal Movements, Abnormal Speech, Behavioral Changes, Burning Sensations, Confusion, Convulsions, Disequilibrium, Dizziness, Numbness, Focal Weakness, Frequent Falls , Headaches, Lack of Coordination, Loss of Vision, Memory Loss, Paresthesias, Radicular Pain, Restless Legs, Sensory Deficit, Syncope, Tingling, Tremor, Vertigo, Weakness, Other Visual Disturbances, Other - Psychiatric Psychiatric: absent: As Per HPI, Abnormal Sleep Pattern, Anhedonia, Anxiety, Auditory Hallucinations, Behavioral Changes, Change in Appetite, Change in Libido, Confusion, Depression, Difficulty Concentrating, Hallucinations, Homicidal Ideation, Hopelessness, Irritability, Memory Loss, Mood Swings, Panic Attacks, Paranoia, Suicidal Ideation, Visual Hallucinations, Tactile Hallucinations, Other - Endocrine Endocrine: absent: As Per HPI, Change in Body Appearance, Change in Libido, Cold Intolorance, Deepening of Voice, Excessive Sweating, Fatigue, Flushing, Heat Intolorance, Increase in Ring/Shoe/Hat Size, Palpitations, Polydipsia, Polyphagia, Polyuria, Other - Hematologic/Lymphatic Hematologic: absent: As Per HPI, Easy Bleeding, Easy Bruising, Lymphadenopathy, Other Past Patient History - Infectious Disease Hx of Infectious Diseases: None - Past Medical History & Family History Past Medical History?: Yes - Past Social History Smoking Status: Never Smoked - CARDIAC Hx Cardiac Disorders: No - PULMONARY Hx Respiratory Disorders: No - RENAL Hx Kidney Stones: Yes (6 years ago) Hx Pyelonephritis: Yes (current) - HEMATOLOGICAL/ONCOLOGICAL Hx AIDS: No Hx Human Immunodeficiency Virus (HIV): No - MUSCULOSKELETAL/RHEUMATOLOGICAL Hx Back Pain: Yes (acute, started 09/13/16) Hx Falls: No - PSYCHIATRIC Hx Substance Use: No - SURGICAL HISTORY Hx Surgeries: Yes Hx Section: Yes (x 2) - ANESTHESIA Hx Anesthesia: Yes Hx Anesthesia Reactions: No Hx Malignant Hyperthermia: No Has any member of the family had a problem w/ anesthesia?: No Meds Allergies/Adverse Reactions: Allergies Allergy/AdvReac Type Severity Reaction Status Date / Time No Known Allergies Allergy Verified 09/16/16 15:50 - Medications Medications: Current Medications Acetaminophen (Tylenol 325mg Tab) 650 mg PO Q4 PRN PRN Reason: Pain, Mild (1-3) Acetaminophen (Tylenol 325mg Tab) 650 mg PO Q4 PRN PRN Reason: Fever >100.4 F Last Admin: 09/16/16 17:33 Dose: 650 mg Docusate Sodium (Colace) 100 mg PO BID [facility] Last Admin: 09/16/16 17:32 Dose: 100 mg Enoxaparin Sodium (Lovenox) 40 mg SC DAILY [facility] PRN Reason: Protocol Ceftriaxone Sodium 2 gm/ (Sodium Chloride) 100 mls @ 100 mls/hr IVPB DAILY@ 1700 [facility] Lactobacillus Acidophilus (Bacid Acidophilus) 1 cap PO BID [facility] Last Admin: 09/16/16 17:32 Dose: 1 cap Lactulose (Enulose) 20 gm PO BID PRN PRN Reason: Constipation Pantoprazole Sodium (Protonix Inj) 40 mg IVP DAILY [facility] Potassium Chloride (K-Dur 20 Meq Er Tab) 20 meq PO ONCE ONE Stop: 09/16/16 18:25 Tramadol HCl (Ultram) 50 mg PO Q6 PRN PRN Reason: Pain, moderate (4-7) Physical Exam - Constitutional Appears: Non-toxic, Chronically Ill - Head Exam Head Exam: NORMOCEPHALIC - Eye Exam Eye Exam: absent: Scleral icterus - ENT Exam ENT Exam: Mucous Membranes Dry, Normal External Ear Exam - Neck Exam Neck exam: Negative for: Lymphadenopathy - Respiratory Exam Respiratory Exam: Decreased Breath Sounds, Clear to Auscultation Bilateral - Cardiovascular Exam Cardiovascular Exam: REGULAR RHYTHM, +S1, +S2 - GI/Abdominal Exam GI & Abdominal Exam: Diminished Bowel Sounds, Soft. absent: Tenderness - Rectal Exam Rectal Exam: Deferred - Exam Exam: NORMAL INSPECTION - Extremities Exam Extremities exam: Negative for: calf tenderness, pedal edema - Back Exam Back exam: absent: CVA tenderness (L), CVA tenderness (R) - Neurological Exam Neurological exam: Alert, CN II-XII Intact, Oriented x3, Reflexes Normal - Psychiatric Exam Psychiatric exam: Normal Mood - Skin Skin Exam: Dry Results - Vital Signs Recent Vital Signs: Last Vital Signs Temp 100.5 F H 09/16/16 17:33 Pulse 92 H 09/16/16 16:52 Resp 20 09/16/16 16:52 BP 129/73 09/16/16 16:52 Pulse Ox 99 09/16/16 16:52 - Labs Result Diagrams: 09/17/16 07:06 09/17/16 07:06 Assessment & Plan - Assessment and Plan (Free Text) Assessment: cont rx pyelonephritis
[2016-09-16] MEDS: cefTRIAXone 2 GM in Sodium Chloride 0.9% 100 ML IVPB SCH (18:39)
[2016-09-16] MEDS ORDERED: Meropenem 1 GM in Sodium Chloride 0.9% 100 ML IVPB SCH (21:00)
[2016-09-17 07:34] LABS: HEMATOCRIT 30.5 % (34.0-47.0); MEAN CELL VOLUME 86.9 fl (81.0-99.0); MEAN CORPUSCULAR HEMOGLOBIN 28.7 pg (27.0-31.0); RED CELL DISTRIBUTION WIDTH 13.4 % (11.5-14.5); WHITE BLOOD COUNT 6.8 K/uL (4.8-10.8)
[2016-09-17 07:41] LABS: BLOOD UREA NITROGEN 8 mg/dl (7-17); CALCIUM 8.4 mg/dL (8.4-10.2); CARBON DIOXIDE 25 mmol/L (22-30); CHLORIDE 106 mmol/L (98-107); GFR AFRICAN-AMERICAN > 60; GLUCOSE,RANDOM 89 mg/dL (65-105); POTASSIUM 3.9 MMOL/L (3.6-5.0); SODIUM 143 mmol/l (132-148)
[2016-09-17] MEDS: Enoxaparin 40 mg Syringe SC SCH (09:02)
[2016-09-17] MEDS: Lactobacillus Acidophilus 500 MU Cap PO SCH ×2 (09:04→17:40)
--- NOTE | 2016-09-17 11:58 | CP.PCM.HP ---
History of Present Illness - History of Present Illness History of Present Illness: Patient presented with a severe symptomatic pyelonephritis. Now recovering well on IV antibx. Present on Admission - Present on Admission Any Indicators Present on Admission: No Review of Systems - Constitutional Constitutional: As Per HPI - EENT Eyes: As Per HPI Nose/Mouth/Throat: As Per HPI - Cardiovascular Cardiovascular: As Per HPI - Respiratory Respiratory: As Per HPI - Gastrointestinal Gastrointestinal: As Per HPI - Musculoskeletal Musculoskeletal: As Per HPI - Integumentary Integumentary: As Per HPI - Neurological Neurological: As Per HPI - Psychiatric Psychiatric: As Per HPI - Endocrine Endocrine: As Per HPI Past Patient History - Infectious Disease Hx of Infectious Diseases: None - Past Medical History & Family History Past Medical History?: Yes - Past Social History Smoking Status: Never Smoked - CARDIAC Hx Cardiac Disorders: No - PULMONARY Hx Respiratory Disorders: No - RENAL Hx Kidney Stones: Yes (6 years ago) Hx Pyelonephritis: Yes (current) - HEMATOLOGICAL/ONCOLOGICAL Hx AIDS: No Hx Human Immunodeficiency Virus (HIV): No - MUSCULOSKELETAL/RHEUMATOLOGICAL Hx Back Pain: Yes (acute, started 09/13/16) Hx Falls: No - PSYCHIATRIC Hx Substance Use: No - SURGICAL HISTORY Hx Surgeries: Yes Hx Section: Yes (x 2) - ANESTHESIA Hx Anesthesia: Yes Hx Anesthesia Reactions: No Hx Malignant Hyperthermia: No Has any member of the family had a problem w/ anesthesia?: No Meds Allergies/Adverse Reactions: Allergies Allergy/AdvReac Type Severity Reaction Status Date / Time No Known Allergies Allergy Verified 09/16/16 15:50 Physical Exam - Constitutional Appears: Non-toxic - Head Exam Head Exam: ATRAUMATIC, NORMAL INSPECTION - Eye Exam Eye Exam: Normal appearance - ENT Exam ENT Exam: Mucous Membranes Moist - Neck Exam Neck exam: Positive for: Full Rom - Respiratory Exam Respiratory Exam: Clear to Auscultation Bilateral - Cardiovascular Exam Cardiovascular Exam: REGULAR RHYTHM, +S1, +S2 - GI/Abdominal Exam GI & Abdominal Exam: Normal Bowel Sounds - Extremities Exam Extremities exam: Positive for: normal inspection - Back Exam Back exam: NORMAL INSPECTION - Neurological Exam Neurological exam: Alert, CN II-XII Intact, Oriented x3, Reflexes Normal - Psychiatric Exam Psychiatric exam: Normal Affect - Skin Skin Exam: Normal Color Results - Vital Signs Recent Vital Signs: Last Vital Signs Temp 100.4 F H 09/17/16 10:00 Pulse 77 09/17/16 10:00 Resp 20 09/17/16 10:00 BP 107/61 09/17/16 10:00 Pulse Ox 98 09/17/16 10:00 - Labs Result Diagrams: 09/17/16 07:06 09/17/16 07:06 Labs: Laboratory Results - last 24 hr 09/17/16 07:06 WBC 6.8 RBC 3.50 L Hgb 10.0 L Hct 30.5 L MCV 86.9 MCH 28.7 MCHC 33.0 RDW 13.4 Plt Count 231 Sodium 143 Potassium 3.9 Chloride 106 Carbon Dioxide 25 Anion Gap 16 BUN 8 Creatinine 0.5 L Est GFR ( Amer) > 60 Est GFR (Non-Af Amer) > 60 Random Glucose 89 Calcium 8.4 Assessment & Plan (1) Abdominal pain Status: Resolved (2) Constipation Status: Chronic (3) Euthyroid sick syndrome Status: Acute (4) Fecal impaction Status: Chronic (5) Hypokalemia Status: Acute (6) Pyelonephritis Status: Acute (7) Ovarian cyst Status: Chronic (8) Renal calculi Status: Chronic - Assessment and Plan (Free Text) Plan: Continue present Rx.
--- NOTE | 2016-09-17 13:26 | CP.PCM.PN ---
Subjective - Date & Time of Evaluation Date of Evaluation: 09/17/16 Time of Evaluation: 09:00 - Subjective Subjective: febrile less discomfort Objective - Vital Signs/Intake and Output Vital Signs (last 24 hours): Temp Pulse Resp BP Pulse Ox 100.4 F H 77 20 107/61 98 09/17/16 10:00 09/17/16 10:00 09/17/16 10:00 09/17/16 10:00 09/17/16 10:00 - Medications Medications: Current Medications Acetaminophen (Tylenol 325mg Tab) 650 mg PO Q4 PRN PRN Reason: Pain, Mild (1-3) Acetaminophen (Tylenol 325mg Tab) 650 mg PO Q4 PRN PRN Reason: Fever >100.4 F Last Admin: 09/16/16 17:33 Dose: 650 mg Docusate Sodium (Colace) 100 mg PO BID [facility] Last Admin: 09/17/16 09:02 Dose: 100 mg Enoxaparin Sodium (Lovenox) 40 mg SC DAILY [facility] PRN Reason: Protocol Last Admin: 09/17/16 09:02 Dose: 40 mg Ceftriaxone Sodium 2 gm/ (Sodium Chloride) 100 mls @ 100 mls/hr IVPB DAILY@ 1700 [facility] Last Admin: 09/16/16 18:39 Dose: 100 mls/hr Lactobacillus Acidophilus (Bacid Acidophilus) 1 cap PO BID [facility] Last Admin: 09/17/16 09:04 Dose: 1 cap Lactulose (Enulose) 20 gm PO BID PRN PRN Reason: Constipation Pantoprazole Sodium (Protonix Inj) 40 mg IVP DAILY [facility] Last Admin: 09/17/16 09:02 Dose: 40 mg Tramadol HCl (Ultram) 50 mg PO Q6 PRN PRN Reason: Pain, moderate (4-7) Last Admin: 09/17/16 02:27 Dose: 50 mg - Labs Labs: 09/17/16 07:06 09/17/16 07:06 - Constitutional Appears: Non-toxic, Chronically Ill - Head Exam Head Exam: NORMOCEPHALIC - Eye Exam Eye Exam: PERRL. absent: Scleral icterus - ENT Exam ENT Exam: Mucous Membranes Dry - Neck Exam Neck Exam: absent: Lymphadenopathy - Respiratory Exam Respiratory Exam: Decreased Breath Sounds, Clear to Ausculation Bilateral - Cardiovascular Exam Cardiovascular Exam: REGULAR RHYTHM, +S1, +S2 - GI/Abdominal Exam GI & Abdominal Exam: Distended, Soft. absent: Tenderness - Rectal Exam Rectal Exam: Deferred - Exam Exam: NORMAL INSPECTION - Extremities Exam Extremities Exam: absent: Pedal Edema - Back Exam Back Exam: absent: CVA tenderness (L), CVA tenderness (R) Assessment and Plan - Assessment and Plan (Free Text) Plan: cont iv antibiotics
[2016-09-17] MEDS: cefTRIAXone 2 GM in Sodium Chloride 0.9% 100 ML IVPB SCH (17:40)
[2016-09-18] MEDS: Enoxaparin 40 mg Syringe SC SCH (09:00)
[2016-09-18] MEDS: Lactobacillus Acidophilus 500 MU Cap PO SCH ×2 (09:02→16:56)
--- NOTE | 2016-09-18 15:31 | CP.PCM.PN ---
Subjective - Date & Time of Evaluation Date of Evaluation: 09/18/16 Time of Evaluation: 15:31 - Subjective Subjective: less discomfort Objective - Vital Signs/Intake and Output Vital Signs (last 24 hours): Temp Pulse Resp BP Pulse Ox 98.4 F 72 20 110/65 98 09/18/16 08:37 09/18/16 08:37 09/18/16 08:37 09/18/16 08:37 09/18/16 08:37 - Medications Medications: Current Medications Acetaminophen (Tylenol 325mg Tab) 650 mg PO Q4 PRN PRN Reason: Pain, Mild (1-3) Acetaminophen (Tylenol 325mg Tab) 650 mg PO Q4 PRN PRN Reason: Fever >100.4 F Last Admin: 09/16/16 17:33 Dose: 650 mg Docusate Sodium (Colace) 100 mg PO BID [facility] Last Admin: 09/18/16 08:59 Dose: 100 mg Enoxaparin Sodium (Lovenox) 40 mg SC DAILY [facility] PRN Reason: Protocol Last Admin: 09/18/16 09:00 Dose: 40 mg Ceftriaxone Sodium 2 gm/ (Sodium Chloride) 100 mls @ 100 mls/hr IVPB DAILY@ 1700 [facility] Last Admin: 09/17/16 17:40 Dose: 100 mls/hr Lactobacillus Acidophilus (Bacid Acidophilus) 1 cap PO BID [facility] Last Admin: 09/18/16 09:02 Dose: 1 cap Lactulose (Enulose) 20 gm PO BID PRN PRN Reason: Constipation Pantoprazole Sodium (Protonix Ec Tab) 40 mg PO DAILY [facility] Tramadol HCl (Ultram) 50 mg PO Q6 PRN PRN Reason: Pain, moderate (4-7) Last Admin: 09/17/16 02:27 Dose: 50 mg - Labs Labs: 09/17/16 07:06 09/17/16 07:06 - Constitutional Appears: Non-toxic - Head Exam Head Exam: ATRAUMATIC, NORMAL INSPECTION, NORMOCEPHALIC - Eye Exam Eye Exam: Normal appearance - ENT Exam ENT Exam: Mucous Membranes Moist, Normal Exam - Neck Exam Neck Exam: Full ROM - Respiratory Exam Respiratory Exam: Clear to Ausculation Bilateral - Cardiovascular Exam Cardiovascular Exam: REGULAR RHYTHM, +S1, +S2 - GI/Abdominal Exam GI & Abdominal Exam: Soft, Normal Bowel Sounds - Neurological Exam Neurological Exam: Alert, Awake, CN II-XII Intact, Normal Gait, Oriented x3 - Psychiatric Exam Psychiatric exam: Normal Affect - Skin Skin Exam: Normal Color Assessment and Plan (1) Abdominal pain Status: Resolved (2) Constipation Status: Chronic (3) Euthyroid sick syndrome Status: Acute (4) Fecal impaction Status: Chronic (5) Hypokalemia Status: Acute (6) Pyelonephritis Status: Acute (7) Ovarian cyst Status: Chronic (8) Renal calculi Status: Chronic
[2016-09-18] MEDS: Pantoprazole 40 mg EC Tab PO SCH (16:54)
[2016-09-18] MEDS: cefTRIAXone 2 GM in Sodium Chloride 0.9% 100 ML IVPB SCH (16:55)
[2016-09-19] MEDS: Enoxaparin 40 mg Syringe SC SCH (09:10)
[2016-09-19] MEDS: Pantoprazole 40 mg EC Tab PO SCH (09:10)
[2016-09-19] MEDS: Lactobacillus Acidophilus 500 MU Cap PO SCH ×2 (09:12→17:12)
--- NOTE | 2016-09-19 13:45 | CP.PCM.PN ---
Subjective - Date & Time of Evaluation Date of Evaluation: 09/19/16 Time of Evaluation: 10:00 - Subjective Subjective: improving on iv rx has pyelo await gu eval cont rx for 14 days Objective - Vital Signs/Intake and Output Vital Signs (last 24 hours): Temp Pulse Resp BP Pulse Ox 98.4 F 70 20 115/64 99 09/19/16 10:00 09/19/16 10:00 09/19/16 10:00 09/19/16 10:00 09/19/16 10:00 - Medications Medications: Current Medications Acetaminophen (Tylenol 325mg Tab) 650 mg PO Q4 PRN PRN Reason: Pain, Mild (1-3) Acetaminophen (Tylenol 325mg Tab) 650 mg PO Q4 PRN PRN Reason: Fever >100.4 F Last Admin: 09/16/16 17:33 Dose: 650 mg Docusate Sodium (Colace) 100 mg PO BID [facility] Last Admin: 09/19/16 09:10 Dose: 100 mg Enoxaparin Sodium (Lovenox) 40 mg SC DAILY [facility] PRN Reason: Protocol Last Admin: 09/19/16 09:10 Dose: 40 mg Ceftriaxone Sodium 2 gm/ (Sodium Chloride) 100 mls @ 100 mls/hr IVPB DAILY@ 1700 [facility] Last Admin: 09/18/16 16:55 Dose: 100 mls/hr Lactobacillus Acidophilus (Bacid Acidophilus) 1 cap PO BID [facility] Last Admin: 09/19/16 09:12 Dose: 1 cap Lactulose (Enulose) 20 gm PO BID PRN PRN Reason: Constipation Pantoprazole Sodium (Protonix Ec Tab) 40 mg PO DAILY [facility] Last Admin: 09/19/16 09:10 Dose: 40 mg Tramadol HCl (Ultram) 50 mg PO Q6 PRN PRN Reason: Pain, moderate (4-7) Last Admin: 09/17/16 02:27 Dose: 50 mg - Labs Labs: 09/17/16 07:06 09/17/16 07:06 - Constitutional Appears: Non-toxic, Chronically Ill - Head Exam Head Exam: NORMOCEPHALIC - Eye Exam Eye Exam: PERRL. absent: Scleral icterus - ENT Exam ENT Exam: Mucous Membranes Dry, Normal External Ear Exam - Neck Exam Neck Exam: absent: Lymphadenopathy - Respiratory Exam Respiratory Exam: Decreased Breath Sounds - Cardiovascular Exam Cardiovascular Exam: REGULAR RHYTHM - GI/Abdominal Exam GI & Abdominal Exam: Distended, Soft - Rectal Exam Rectal Exam: Deferred - Exam Exam: NORMAL INSPECTION - Extremities Exam Extremities Exam: absent: Calf Tenderness, Pedal Edema - Back Exam Back Exam: absent: CVA tenderness (L), CVA tenderness (R) - Neurological Exam Neurological Exam: Alert, Awake, Oriented x3 Assessment and Plan (1) Pyelonephritis Status: Acute (2) UTI (urinary tract infection) Status: Acute - Assessment and Plan (Free Text) Assessment: cont iv antibiotics then po
[2016-09-19] MEDS: cefTRIAXone 2 GM in Sodium Chloride 0.9% 100 ML IVPB SCH (17:00)
--- NOTE | 2016-09-19 22:23 | CP.PCM.PN ---
Subjective - Date & Time of Evaluation Date of Evaluation: 09/19/16 Time of Evaluation: 22:23 - Subjective Subjective: Comfortable Continue antibx for a total of 10 days (until the 09/22) Objective - Vital Signs/Intake and Output Vital Signs (last 24 hours): Temp Pulse Resp BP Pulse Ox 98.2 F 79 20 102/72 100 09/19/16 20:34 09/19/16 20:34 09/19/16 20:34 09/19/16 20:34 09/19/16 20:34 Intake and Output: 09/19/16 09/19/16 11:59 23:59 Intake Total 800 Balance 800 - Medications Medications: Current Medications Acetaminophen (Tylenol 325mg Tab) 650 mg PO Q4 PRN PRN Reason: Pain, Mild (1-3) Acetaminophen (Tylenol 325mg Tab) 650 mg PO Q4 PRN PRN Reason: Fever >100.4 F Last Admin: 09/16/16 17:33 Dose: 650 mg Docusate Sodium (Colace) 100 mg PO BID [facility] Last Admin: 09/19/16 17:12 Dose: 100 mg Enoxaparin Sodium (Lovenox) 40 mg SC DAILY [facility] PRN Reason: Protocol Last Admin: 09/19/16 09:10 Dose: 40 mg Ceftriaxone Sodium 2 gm/ (Sodium Chloride) 100 mls @ 100 mls/hr IVPB DAILY@ 1700 [facility] Last Admin: 09/19/16 17:00 Dose: 100 mls/hr Lactobacillus Acidophilus (Bacid Acidophilus) 1 cap PO BID [facility] Last Admin: 09/19/16 17:12 Dose: 1 cap Lactulose (Enulose) 20 gm PO BID PRN PRN Reason: Constipation Pantoprazole Sodium (Protonix Ec Tab) 40 mg PO DAILY [facility] Last Admin: 09/19/16 09:10 Dose: 40 mg Tramadol HCl (Ultram) 50 mg PO Q6 PRN PRN Reason: Pain, moderate (4-7) Last Admin: 09/17/16 02:27 Dose: 50 mg - Labs Labs: 09/17/16 07:06 09/17/16 07:06 - Constitutional Appears: Non-toxic - Head Exam Head Exam: ATRAUMATIC, NORMAL INSPECTION, NORMOCEPHALIC - Eye Exam Eye Exam: Normal appearance Pupil Exam: NORMAL ACCOMODATION - ENT Exam ENT Exam: Mucous Membranes Moist - Neck Exam Neck Exam: Full ROM - Respiratory Exam Respiratory Exam: Clear to Ausculation Bilateral - Cardiovascular Exam Cardiovascular Exam: REGULAR RHYTHM, +S1, +S2 - GI/Abdominal Exam GI & Abdominal Exam: Soft, Normal Bowel Sounds - Neurological Exam Neurological Exam: Alert, Awake, CN II-XII Intact, Normal Gait, Oriented x3 - Psychiatric Exam Psychiatric exam: Normal Affect - Skin Skin Exam: Normal Color Assessment and Plan (1) Abdominal pain Status: Resolved (2) Constipation Status: Chronic (3) Euthyroid sick syndrome Status: Acute (4) Fecal impaction Status: Chronic (5) Hypokalemia Status: Acute (6) Pyelonephritis Status: Acute (7) Ovarian cyst Status: Chronic (8) Renal calculi Status: Chronic
[2016-09-20] MEDS: Lactobacillus Acidophilus 500 MU Cap PO SCH ×2 (09:19→17:18)
[2016-09-20] MEDS: Pantoprazole 40 mg EC Tab PO SCH (09:20)
[2016-09-20] MEDS: Enoxaparin 40 mg Syringe SC SCH (09:20)
--- NOTE | 2016-09-20 16:43 | CP.PCM.PN ---
Subjective - Date & Time of Evaluation Date of Evaluation: 09/20/16 Time of Evaluation: 16:43 - Subjective Subjective: No new c/o Objective - Vital Signs/Intake and Output Vital Signs (last 24 hours): Temp Pulse Resp BP Pulse Ox 97.7 F 68 20 100/67 98 09/20/16 16:03 09/20/16 16:03 09/20/16 16:03 09/20/16 16:03 09/20/16 16:03 Intake and Output: 09/20/16 09/20/16 11:59 23:59 Intake Total 800 Balance 800 - Medications Medications: Current Medications Acetaminophen (Tylenol 325mg Tab) 650 mg PO Q4 PRN PRN Reason: Pain, Mild (1-3) Acetaminophen (Tylenol 325mg Tab) 650 mg PO Q4 PRN PRN Reason: Fever >100.4 F Last Admin: 09/16/16 17:33 Dose: 650 mg Docusate Sodium (Colace) 100 mg PO BID [facility] Last Admin: 09/20/16 09:19 Dose: 100 mg Enoxaparin Sodium (Lovenox) 40 mg SC DAILY [facility] PRN Reason: Protocol Ceftriaxone Sodium 2 gm/ (Sodium Chloride) 100 mls @ 100 mls/hr IVPB DAILY@ 1700 [facility] Last Admin: 09/19/16 17:00 Dose: 100 mls/hr Lactobacillus Acidophilus (Bacid Acidophilus) 1 cap PO BID [facility] Last Admin: 09/20/16 09:19 Dose: 1 cap Lactulose (Enulose) 20 gm PO BID PRN PRN Reason: Constipation Pantoprazole Sodium (Protonix Ec Tab) 40 mg PO DAILY [facility] Last Admin: 09/20/16 09:20 Dose: 40 mg Tramadol HCl (Ultram) 50 mg PO Q6 PRN PRN Reason: Pain, moderate (4-7) Last Admin: 09/17/16 02:27 Dose: 50 mg - Labs Labs: 09/17/16 07:06 09/17/16 07:06 - Constitutional Appears: Well - Head Exam Head Exam: ATRAUMATIC, NORMAL INSPECTION, NORMOCEPHALIC - Eye Exam Eye Exam: EOMI, Normal appearance, PERRL - ENT Exam ENT Exam: Mucous Membranes Moist - Neck Exam Neck Exam: Full ROM, Normal Inspection - Respiratory Exam Respiratory Exam: Clear to Ausculation Bilateral - Cardiovascular Exam Cardiovascular Exam: REGULAR RHYTHM, +S1, +S2 - GI/Abdominal Exam GI & Abdominal Exam: Normal Bowel Sounds - Extremities Exam Extremities Exam: Normal Inspection - Neurological Exam Neurological Exam: Alert, Awake, CN II-XII Intact, Normal Gait, Oriented x3 - Psychiatric Exam Psychiatric exam: Normal Affect - Skin Skin Exam: Normal Color Assessment and Plan (1) Abdominal pain Status: Resolved (2) Constipation Status: Chronic (3) Euthyroid sick syndrome Status: Acute (4) Fecal impaction Status: Chronic (5) Hypokalemia Status: Acute (6) Pyelonephritis Status: Acute (7) Ovarian cyst Status: Chronic (8) Renal calculi Status: Chronic
[2016-09-20 16:58] LABS: HEMATOCRIT 34.4 % (34.0-47.0); MEAN CELL VOLUME 87.2 fl (81.0-99.0); MEAN CORPUSCULAR HEMOGLOBIN 28.1 pg (27.0-31.0); MEAN CORPUSCULAR HGB CONC 32.2 g/dL (33.0-37.0); RED CELL DISTRIBUTION WIDTH 13.6 % (11.5-14.5)
[2016-09-20 17:09] LABS: BLOOD UREA NITROGEN 12 mg/dl (7-17); CARBON DIOXIDE 27 mmol/L (22-30); CHLORIDE 103 mmol/L (98-107); GFR AFRICAN-AMERICAN > 60; GLUCOSE,RANDOM 100 mg/dL (65-105); POTASSIUM 4.1 MMOL/L (3.6-5.0); SODIUM 139 mmol/l (132-148)
[2016-09-20] MEDS: cefTRIAXone 2 GM in Sodium Chloride 0.9% 100 ML IVPB SCH (17:19)
[2016-09-21] MEDS: Lactobacillus Acidophilus 500 MU Cap PO SCH ×2 (08:12→16:19)
[2016-09-21] MEDS: Pantoprazole 40 mg EC Tab PO SCH (08:12)
[2016-09-21] MEDS: cefTRIAXone 2 GM in Sodium Chloride 0.9% 100 ML IVPB SCH (16:10)
[2016-09-21] MEDS: Enoxaparin 40 mg Syringe SC SCH (16:16)
--- NOTE | 2016-09-21 18:47 | CP.PCM.PN ---
Subjective - Date & Time of Evaluation Date of Evaluation: 09/21/16 Time of Evaluation: 18:47 - Subjective Subjective: Comfortable Objective - Vital Signs/Intake and Output Vital Signs (last 24 hours): Temp Pulse Resp BP Pulse Ox 97.7 F 73 20 103/63 98 09/21/16 16:53 09/21/16 16:53 09/21/16 16:53 09/21/16 16:53 09/21/16 16:53 - Medications Medications: Current Medications Acetaminophen (Tylenol 325mg Tab) 650 mg PO Q4 PRN PRN Reason: Pain, Mild (1-3) Acetaminophen (Tylenol 325mg Tab) 650 mg PO Q4 PRN PRN Reason: Fever >100.4 F Last Admin: 09/16/16 17:33 Dose: 650 mg Docusate Sodium (Colace) 100 mg PO BID [facility] Last Admin: 09/21/16 16:16 Dose: 100 mg Enoxaparin Sodium (Lovenox) 40 mg SC DAILY [facility] PRN Reason: Protocol Last Admin: 09/21/16 16:16 Dose: 40 mg Ceftriaxone Sodium 2 gm/ (Sodium Chloride) 100 mls @ 100 mls/hr IVPB DAILY@ 1700 [facility] Last Admin: 09/21/16 16:10 Dose: 100 mls/hr Lactobacillus Acidophilus (Bacid Acidophilus) 1 cap PO BID [facility] Last Admin: 09/21/16 16:19 Dose: 1 cap Lactulose (Enulose) 20 gm PO BID PRN PRN Reason: Constipation Pantoprazole Sodium (Protonix Ec Tab) 40 mg PO DAILY [facility] Last Admin: 09/21/16 08:12 Dose: 40 mg - Labs Labs: 09/20/16 16:45 09/20/16 16:45 - Constitutional Appears: Non-toxic - Head Exam Head Exam: ATRAUMATIC, NORMAL INSPECTION, NORMOCEPHALIC - Eye Exam Eye Exam: EOMI, Normal appearance, PERRL Pupil Exam: NORMAL ACCOMODATION - Neck Exam Neck Exam: Full ROM - Respiratory Exam Respiratory Exam: Clear to Ausculation Bilateral - Cardiovascular Exam Cardiovascular Exam: REGULAR RHYTHM, +S1, +S2 - GI/Abdominal Exam GI & Abdominal Exam: Normal Bowel Sounds - Extremities Exam Extremities Exam: Normal Inspection - Back Exam Back Exam: NORMAL INSPECTION - Neurological Exam Neurological Exam: Alert, Awake, CN II-XII Intact, Normal Gait, Oriented x3 - Psychiatric Exam Psychiatric exam: Normal Affect - Skin Skin Exam: Normal Color Assessment and Plan (1) Abdominal pain Status: Resolved (2) Constipation Status: Chronic (3) Euthyroid sick syndrome Status: Acute (4) Fecal impaction Status: Chronic (5) Hypokalemia Status: Acute (6) Pyelonephritis Status: Acute (7) Ovarian cyst Status: Chronic (8) Renal calculi Status: Chronic - Assessment and Plan (Free Text) Plan: Continue present rx Will follow urine culture.
[2016-09-22] MEDS: Pantoprazole 40 mg EC Tab PO SCH (09:11)
[2016-09-22] MEDS: Enoxaparin 40 mg Syringe SC SCH (09:12)
[2016-09-22] MEDS: Lactobacillus Acidophilus 500 MU Cap PO SCH ×2 (09:14→16:46)
[2016-09-22] MEDS: cefTRIAXone 2 GM in Sodium Chloride 0.9% 100 ML IVPB SCH (10:20)
--- NOTE | 2016-09-22 12:12 | CP.PCM.PN ---
Subjective - Date & Time of Evaluation Date of Evaluation: 09/22/16 Time of Evaluation: 12:11 - Subjective Subjective: No new c/o Objective - Vital Signs/Intake and Output Vital Signs (last 24 hours): Temp Pulse Resp BP Pulse Ox 97.7 F 55 L 20 101/56 L 100 09/22/16 08:12 09/22/16 08:12 09/22/16 08:12 09/22/16 08:12 09/22/16 08:12 - Medications Medications: Current Medications Acetaminophen (Tylenol 325mg Tab) 650 mg PO Q4 PRN PRN Reason: Pain, Mild (1-3) Acetaminophen (Tylenol 325mg Tab) 650 mg PO Q4 PRN PRN Reason: Fever >100.4 F Last Admin: 09/16/16 17:33 Dose: 650 mg Docusate Sodium (Colace) 100 mg PO BID [facility] Last Admin: 09/22/16 09:11 Dose: 100 mg Enoxaparin Sodium (Lovenox) 40 mg SC DAILY [facility] PRN Reason: Protocol Last Admin: 09/22/16 09:12 Dose: 40 mg Ceftriaxone Sodium 2 gm/ (Sodium Chloride) 100 mls @ 100 mls/hr IVPB DAILY@ 0900 [facility] Last Admin: 09/22/16 10:20 Dose: 100 mls/hr Lactobacillus Acidophilus (Bacid Acidophilus) 1 cap PO BID [facility] Last Admin: 09/22/16 09:14 Dose: 1 cap Lactulose (Enulose) 20 gm PO BID PRN PRN Reason: Constipation Pantoprazole Sodium (Protonix Ec Tab) 40 mg PO DAILY [facility] Last Admin: 09/22/16 09:11 Dose: 40 mg - Labs Labs: 09/20/16 16:45 09/20/16 16:45 - Constitutional Appears: Non-toxic - Head Exam Head Exam: ATRAUMATIC, NORMAL INSPECTION, NORMOCEPHALIC - Eye Exam Eye Exam: Normal appearance - ENT Exam ENT Exam: Mucous Membranes Moist - Neck Exam Neck Exam: Full ROM - Respiratory Exam Respiratory Exam: Clear to Ausculation Bilateral - Cardiovascular Exam Cardiovascular Exam: REGULAR RHYTHM, +S1, +S2 - GI/Abdominal Exam GI & Abdominal Exam: Normal Bowel Sounds - Extremities Exam Extremities Exam: Normal Inspection - Neurological Exam Neurological Exam: Alert, Awake, CN II-XII Intact, Normal Gait, Oriented x3 - Psychiatric Exam Psychiatric exam: Normal Affect - Skin Skin Exam: Normal Color Assessment and Plan (1) Abdominal pain Status: Resolved (2) Constipation Status: Chronic (3) Euthyroid sick syndrome Status: Acute (4) Fecal impaction Status: Chronic (5) Hypokalemia Status: Acute (6) Pyelonephritis Status: Acute (7) Ovarian cyst Status: Chronic (8) Renal calculi Status: Chronic
[2016-09-23 08:42] VITALS: BP 100/61; PULSE 55; TEMP 97.7; O2SAT 99
[2016-09-23] MEDS: Lactobacillus Acidophilus 500 MU Cap PO SCH (09:11)
[2016-09-23] MEDS: Pantoprazole 40 mg EC Tab PO SCH (09:11)
[2016-09-23] MEDS: cefTRIAXone 2 GM in Sodium Chloride 0.9% 100 ML IVPB SCH (09:11)
[2016-09-23] MEDS: Enoxaparin 40 mg Syringe SC SCH (09:12)
--- NOTE | 2016-09-23 12:24 | CP.PCM.DIS ---
Provider - Provider Date of Admission: 09/16/16 15:51 Attending physician: Obi Guillen MD Time Spent in preparation of Discharge (in minutes): 30 Diagnosis - Discharge Diagnosis (1) Abdominal pain Status: Resolved (2) Constipation Status: Chronic (3) Euthyroid sick syndrome Status: Acute (4) Fecal impaction Status: Chronic (5) Hypokalemia Status: Acute (6) Pyelonephritis Status: Acute (7) Ovarian cyst Status: Chronic (8) Renal calculi Status: Chronic Hospital Course - Lab Results Lab Results: Micro Results 09/22/16 09:03 Urine,Clean Catch Urine Culture - Final No Growth (<1,000 CFU/ML) Most Recent Lab Values WBC 6.0 K/uL (4.8-10.8) 09/20/16 16:45 RBC 3.94 Mil/uL (3.80-5.20) 09/20/16 16:45 Hgb 11.1 g/dL (12.0-16.0) L 09/20/16 16:45 Hct 34.4 % (34.0-47.0) 09/20/16 16:45 MCV 87.2 fl (81.0-99.0) 09/20/16 16:45 MCH 28.1 pg (27.0-31.0) 09/20/16 16:45 MCHC 32.2 g/dL (33.0-37.0) L 09/20/16 16:45 RDW 13.6 % (11.5-14.5) 09/20/16 16:45 Plt Count 385 K/uL (130-400) D 09/20/16 16:45 Sodium 139 mmol/l (132-148) 09/20/16 16:45 Potassium 4.1 MMOL/L (3.6-5.0) 09/20/16 16:45 Chloride 103 mmol/L (98-107) 09/20/16 16:45 Carbon Dioxide 27 mmol/L (22-30) 09/20/16 16:45 Anion Gap 13 (10-20) 09/20/16 16:45 BUN 12 mg/dl (7-17) 09/20/16 16:45 Creatinine 0.7 mg/dL (0.7-1.2) 09/20/16 16:45 Est GFR ( Amer) > 60 09/20/16 16:45 Est GFR (Non-Af Amer) > 60 09/20/16 16:45 Random Glucose 100 mg/dL (65-105) 09/20/16 16:45 Calcium 9.0 mg/dL (8.4-10.2) 09/20/16 16:45 - Hospital Course Hospital Course: Patient presented with a severe symptomatic pyelonephritis. Now recovering well on IV antibx. Discharge Exam - Head Exam Head Exam: ATRAUMATIC, NORMAL INSPECTION, NORMOCEPHALIC - Eye Exam Eye Exam: EOMI, Normal appearance, PERRL Pupil Exam: NORMAL ACCOMODATION - ENT Exam ENT Exam: Mucous Membranes Moist - Respiratory Exam Respiratory Exam: Clear to PA & Lateral, NORMAL BREATHING PATTERN - Cardiovascular Exam Cardiovascular Exam: REGULAR RHYTHM, +S1, +S2 - GI/Abdominal Exam GI & Abdominal Exam: Normal Bowel Sounds - Extremities Exam Extremities exam: normal inspection - Neurological Exam Neurological exam: Alert, CN II-XII Intact, Normal Gait, Oriented x3, Reflexes Normal - Psychiatric Exam Psychiatric exam: Normal Affect - Skin Skin Exam: Normal Color Discharge Plan - Follow Up Plan Condition: GOOD Disposition: HOME/ ROUTINE Instructions: Acute Pyelonephritis (DC)
--- NOTE | 2016-09-23 17:27 | CP.PCM.PN ---
Subjective - Date & Time of Evaluation Date of Evaluation: 09/23/16 Time of Evaluation: 09:00 - Subjective Subjective: improved cleared for discharge Objective - Vital Signs/Intake and Output Vital Signs (last 24 hours): Temp Pulse Resp BP Pulse Ox 97.7 F 55 L 20 100/61 99 09/23/16 08:41 09/23/16 08:41 09/23/16 08:41 09/23/16 08:41 09/23/16 08:41 - Labs Labs: 09/20/16 16:45 09/20/16 16:45 Assessment and Plan (1) Pyelonephritis Status: Acute (2) UTI (urinary tract infection) Status: Acute
== END 2016-09-23 14:30 | disposition home or self-care (01) | DRG 320 ==
LOC: H.TCU 15:51
PROVIDERS: ADMIT Internal Medicine; ATTEND Internal Medicine
PROC: 3E03329 Introduction of Other Anti-infective into Peripheral Vein, Percutaneous Approach (ICD-10-PCS; principal; 2016-09-16)
PROC: F07M6FZ Therapeutic Exercise Treatment of Musculoskeletal System - Whole Body using Assistive, Adaptive, Supportive or Protective Equipment (ICD-10-PCS; 2016-09-16)
DX: N10 Acute pyelonephritis (principal); E87.6 Hypokalemia; N20.0 Calculus of kidney; E07.81 Sick-euthyroid syndrome; K59.09 Other constipation; Z87.442 Personal history of urinary calculi

== ENCOUNTER 2017-03-20 09:30 | Emergency (ER) | payer OTHER ==
[2017-03-20 09:38] VITALS: BP 133/68; PULSE 72; RESP 16; TEMP 99.1; O2SAT 96; BMI 25.7
--- NOTE | 2017-03-20 09:55 | ED PDOC ---
HPI: Abdomen Time Seen by Provider: 03/20/17 09:35 Chief Complaint (Nursing): Abdominal Pain History Per: Patient (Dysuria and ffequency x 3 days assoc with lower abd/ suprapubic pain. No fever or vomiting. No back pain. No improvemnt with Urostat.) Onset/Duration Of Symptoms: Days (3) Current Symptoms Are (Timing): Still Present Severity: Moderate Pain Scale Rating Of: 3 Location Of Pain/Discomfort: Suprapubic Quality Of Discomfort: Burning Associated Symptoms: Urinary Symptoms. denies: Fever, Nausea, Vomiting, Diarrhea, Back Pain Abnormal Vaginal Bleeding: No Past Medical History Vital Signs: Last Vital Signs Temp 99.1 F 03/20/17 09:37 Pulse 72 03/20/17 09:37 Resp 16 03/20/17 09:37 BP 133/68 03/20/17 09:37 Pulse Ox 96 03/20/17 09:37 - Medical History PMH: Kidney Stones (6 years ago) - Surgical History Surgical History: - Family History Family History: States: Unknown Family Hx - Immunization History Hx Tetanus Toxoid Vaccination: No Hx Influenza Vaccination: No Hx Pneumococcal Vaccination: No - Home Medications Home Medications: Ambulatory Orders Medication Instructions Recorded Ibuprofen [Advil] 200 mg PO Q8 PRN 02/06/14 Acetaminophen [Tylenol 325mg tab] 650 mg PO Q4 PRN 09/13/16 Ciprofloxacin HCl [Cipro] 500 mg PO BID #20 tab 03/20/17 Naproxen [Naprosyn] 500 mg PO Q12H #20 tab 03/20/17 - Allergies Allergies/Adverse Reactions: Allergies Allergy/AdvReac Type Severity Reaction Status Date / Time No Known Allergies Allergy Verified 09/16/16 15:50 Review of Systems Constitutional: Negative for: Fever Gastrointestinal: Positive for: Abdominal Pain Genitourinary Female: Positive for: Dysuria, Frequency Musculoskeletal: Negative for: Back Pain Physical Exam - Physical Exam Appears: Positive for: Non-toxic, No Acute Distress Skin: Positive for: Normal Color, Warm, DRY Gastrointestinal/Abdominal: Positive for: Bowel Sounds, Soft. Negative for: Tenderness Back: Negative for: L CVA Tenderness, R CVA Tenderness Extremity: Positive for: Normal ROM Neurologic/Psych: Positive for: Alert, Oriented - ECG O2 Sat by Pulse Oximetry: 96 Disposition - Clinical Impression Clinical Impression: UTI (urinary tract infection) - Patient ED Disposition Is Patient to be Admitted: No - Disposition Referrals: Obi Guillen MD [Primary Care Provider] - Disposition: Routine/Home Disposition Time: 09:55 Condition: FAIR Prescriptions: Ciprofloxacin HCl [Cipro] 500 mg PO BID #20 tab Naproxen [Naprosyn] 500 mg PO Q12H #20 tab Instructions: Urinary Tract Infection in Women (ED)
== END 2017-03-20 10:38 | disposition home or self-care (01) ==
LOC: H.ER 09:30 → SUPCPDRO 09:30 → H.ER 10:38
DX: N39.0 Urinary tract infection, site not specified (principal)

== ENCOUNTER 2017-05-15 09:42 | Emergency (ER) | payer MEDICAID, OTHER ==
[2017-05-15 10:09] VITALS: BP 104/54; PULSE 95; RESP 16; O2SAT 98
--- NOTE | 2017-05-15 10:19 | ED PDOC ---
HPI: Abdomen Time Seen by Provider: 05/15/17 09:53 Chief Complaint (Nursing): Abdominal Pain Chief Complaint (Provider): Abdominal Pain History Per: Patient History/Exam Limitations: no limitations Onset/Duration Of Symptoms: Days (x 2) Current Symptoms Are (Timing): Still Present Additional Complaint(s): Amna Pompa is a 46 year old female with no past medical history who presents to the ED complaining of left-sided abdominal pain associated with nausea, for 2 days. No vomiting or diarrhea. Patient also complains of urinary frequency. LMP was 2 weeks ago. PMD: Obi Guillen Past Medical History Reviewed: Historical Data, Nursing Documentation, Vital Signs Vital Signs: Last Vital Signs Temp 99.5 F 05/15/17 12:03 Pulse 95 H 05/15/17 10:07 Resp 16 05/15/17 10:07 BP 104/54 L 05/15/17 10:07 Pulse Ox 98 05/15/17 11:44 - Medical History PMH: Kidney Stones (6 years ago) Denies: HIV - Surgical History Surgical History: - Family History Family History: States: Unknown Family Hx - Social History Current smoker - smoking cessation education provided: No Alcohol: None Drugs: Denies - Immunization History Hx Tetanus Toxoid Vaccination: No Hx Influenza Vaccination: No Hx Pneumococcal Vaccination: No - Home Medications Home Medications: Ambulatory Orders Medication Instructions Recorded Ibuprofen [Advil] 200 mg PO Q8 PRN 02/06/14 Acetaminophen [Tylenol 325mg tab] 650 mg PO Q4 PRN 09/13/16 Ciprofloxacin HCl [Cipro] 500 mg PO BID #20 tab 03/20/17 Naproxen [Naprosyn] 500 mg PO Q12H #20 tab 03/20/17 Ciprofloxacin HCl [Cipro] 500 mg PO BID #20 tab 05/15/17 Naproxen [Naprosyn] 500 mg PO Q12H #20 tab 05/15/17 - Allergies Allergies/Adverse Reactions: Allergies Allergy/AdvReac Type Severity Reaction Status Date / Time No Known Allergies Allergy Verified 05/15/17 10:06 Review of Systems ROS Statement: Except As Marked, All Systems Reviewed And Found Negative Gastrointestinal: Positive for: Nausea, Abdominal Pain. Negative for: Vomiting , Diarrhea Genitourinary Female: Positive for: Frequency Physical Exam - Reviewed Nursing Documentation Reviewed: Yes Vital Signs Reviewed: Yes - Physical Exam Appears: Positive for: Non-toxic, No Acute Distress Head Exam: Positive for: ATRAUMATIC, NORMAL INSPECTION, NORMOCEPHALIC Skin: Positive for: Normal Color, Warm, Dry Eye Exam: Positive for: EOMI, Normal appearance, PERRL Neck: Positive for: Normal, Painless ROM, Supple Cardiovascular/Chest: Positive for: Regular Rate, Rhythm. Negative for: Murmur Respiratory: Positive for: Normal Breath Sounds. Negative for: Respiratory Distress Gastrointestinal/Abdominal: Positive for: Soft, Tenderness (at LLQ). Negative for: Guarding, Rebound Extremity: Positive for: Normal ROM. Negative for: Pedal Edema, Deformity Neurologic/Psych: Positive for: Alert, Oriented (x3) - Laboratory Results Result Diagrams: 05/15/17 09:25 05/15/17 09:25 - ECG O2 Sat by Pulse Oximetry: 98 (RA) Pulse Ox Interpretation: Normal Medical Decision Making Medical Decision Making: Time: 10:03 Initial Plan: --Urine --Urine dipstick --CMP --CBC w/ differential --Toradol 30 mg IM --Pending reevaluation Time: 10:25 --Blood culture --Urine culture --US Transvaginal Time: 10:45 Labs reviewed, potassium is low. Ordered potassium chloride 20 meq. Scribe Attestation: Documented by Maddy Johnson, acting as a scribe for Dewayne Ham MD Provider Scribe Attestation: All medical record entries made by the Scribe were at my direction and personally dictated by me. I have reviewed the chart and agree that the record accurately reflects my personal performance of the history, physical exam, medical decision making, and the department course for this patient. I have also personally directed, reviewed, and agree with the discharge instructions and disposition. Disposition - Clinical Impression Clinical Impression: UTI (urinary tract infection), Renal calculi, Fibroids - Patient ED Disposition Is Patient to be Admitted: No Counseled Patient/Family Regarding: Studies Performed, Diagnosis, Need For Followup, Rx Given - Disposition Referrals: Obi Guillen MD [Staff Provider] - Disposition: Routine/Home Disposition Time: 13:44 Condition: FAIR Prescriptions: Ciprofloxacin HCl [Cipro] 500 mg PO BID #20 tab Naproxen [Naprosyn] 500 mg PO Q12H #20 tab Instructions: Urinary Tract Infection in Women (ED) Forms: [employer] (Hong Konger)
[2017-05-15 10:32] LABS: BASO % 0.2 % (0.0-2.0); EOS % 0.1 % (0.0-4.0); HEMATOCRIT 37.7 % (34.0-47.0); MEAN CELL VOLUME 86.6 fl (81.0-99.0); MEAN CORPUSCULAR HEMOGLOBIN 29.2 pg (27.0-31.0); MEAN CORPUSCULAR HGB CONC 33.7 g/dL (33.0-37.0); MEAN PLATELET VOLUME 8.8 fl (7.2-11.7); MONO # 0.8 K/uL (0.0-0.8); MONO % 8.3 % (0.0-10.0); NEUT # 7.7 K/uL (1.8-7.0); NEUT % 81.4 % (50.0-75.0); RED CELL DISTRIBUTION WIDTH 13.4 % (11.5-14.5)
[2017-05-15 10:33] LABS: WHITE BLOOD COUNT 9.5 K/uL (4.8-10.8)
[2017-05-15 10:39] LABS: ALB/GLOB RATIO 1.2 (1.0-2.1); ALKALINE PHOSPHATASE 101 U/L (38-126); ALT/SGPT 22 U/L (9-52); AST/SGOT 28 U/L (14-36); BILIRUBIN,TOTAL 0.5 mg/dl (0.2-1.3); BLOOD UREA NITROGEN 11 mg/dl (7-17); CALCIUM 8.8 mg/dL (8.4-10.2); CARBON DIOXIDE 26 mmol/L (22-30); CHLORIDE 104 mmol/L (98-107); GFR AFRICAN-AMERICAN > 60; GLUCOSE,RANDOM 99 mg/dL (65-105); POTASSIUM 3.3 MMOL/L (3.6-5.0); SODIUM 138 mmol/l (132-148); TOTAL PROTEIN 7.7 G/DL (6.3-8.2)
[2017-05-15] MEDS ORDERED: Potassium Chloride 20 mEq ER Tab PO ONE ×2 (10:45→11:43)
[2017-05-15 12:03] VITALS: TEMP 99.5
--- NOTE | 2017-05-15 13:19 | US ---
HISTORY: LLQ pain COMPARISON: Comparison made with prior study dated 09/14/2016. And TECHNIQUE: FINDINGS: UTERUS: The uterus is anteverted measuring approximately 7.4 x 4.7 x 5.2 cm. The uterus is inhomogeneous and lobulated in contour. There appear to be at least 3 discrete fibroids all of which are along the fundal region ; 1 located posteriorly measuring approximately 2.1 cm in greatest dimension another mid fundal region measuring approximate 1.6 cm in greatest dimension and the 3rd anteriorly located measuring approximately 2.2 cm in greatest dimension. ENDOMETRIUM: Endometrium measures approximately 6 mm in diameter. Unremarkable. CERVIX: Several small cervical nabothian cyst present. RIGHT OVARY: Right ovary measures approximate 2.5 x 1.3 x 2.1 cm. No solid mass. Normal flow. LEFT OVARY: Left ovary measures approximate 2.7 x 1.4 x 3.3 cm. No solid mass. Normal flow. . There is a small cyst or prominent follicle measuring 1.3 cm in greatest dimension. FREE FLUID: No significant free fluid noted. OTHER FINDINGS: None. IMPRESSION: Several smaller uterine fibroids. . Small cervical nabothian cyst. . Prominent left ovarian follicle or small cyst.
--- NOTE | 2017-05-15 13:44 | US ---
PROCEDURE: Renal ultrasound 05/15/2017. HISTORY: pyelonephritis COMPARISON: None available. TECHNIQUE: Sonogram of the kidneys. FINDINGS: RIGHT KIDNEY: Right kidney measures approximately 11.5 x 4.3 x 4.7 cm. Normal in size, contour and echogenicity. There are least 2 upper pole cyst the 1st measuring approximately 1.7 cm in greatest dimension and the 2nd measuring approximately 0.4 cm in greatest dimension. Multiple echogenic foci within mid to upper pole consistent with nonobstructing renal calculi. No evidence of hydronephrosis. No solid mass seen. LEFT KIDNEY: Left kidney measures approximately 11.6 x 5.3 x 5.3 cm. Cm. Normal in size, contour and echogenicity. No solid mass lesion or hydronephrosis visualized. At least 1 nonobstructing echogenic calculus lower pole left kidney present. Nonobstructing OTHER FINDINGS: Prevoid urinary bladder volume at the time of this study calculated at approximately 203 cc with no significant postvoid residual. . Both ureteral jets seen. . IMPRESSION: There are bilateral nonobstructing renal calculi. Two small cyst seen in the upper pole right kidney.
== END 2017-05-15 14:17 | disposition home or self-care (01) ==
LOC: H.ER 09:42
DX: N39.0 Urinary tract infection, site not specified (principal); D25.9 Leiomyoma of uterus, unspecified; N20.0 Calculus of kidney; N88.8 Other specified noninflammatory disorders of cervix uteri
CPT/HCPCS: 76770; 76830; 80053; 81025; 85025; 87040; 87086; 87181; 96374; 99283; J1885

== ENCOUNTER 2017-06-03 04:55 | Emergency (ER) | payer MEDICAID ==
[2017-06-03] MEDS ORDERED: Sodium Chloride 0.9% 1,000 ML IV STA (05:24)
[2017-06-03 05:51] LABS: BASO % 0.2 % (0.0-2.0); EOS # 0.1 K/uL (0.0-0.7); EOS % 1.8 % (0.0-4.0); HEMATOCRIT 37.9 % (34.0-47.0); LYMPH # 1.4 K/uL (1.0-4.3); LYMPH % 23.1 % (20.0-40.0); MEAN CELL VOLUME 85.9 fl (81.0-99.0); MEAN CORPUSCULAR HEMOGLOBIN 27.8 pg (27.0-31.0); MEAN CORPUSCULAR HGB CONC 32.3 g/dL (33.0-37.0); MONO # 0.6 K/uL (0.0-0.8); MONO % 10.3 % (0.0-10.0); NEUT % 64.6 % (50.0-75.0); RED CELL DISTRIBUTION WIDTH 13.7 % (11.5-14.5); WHITE BLOOD COUNT 6.2 K/uL (4.8-10.8)
--- NOTE | 2017-06-03 06:05 | ED PDOC ---
HPI: Back Time Seen by Provider: 06/03/17 05:10 Chief Complaint (Nursing): Female Genitourinary Chief Complaint (Provider): flank pain History Per: Patient History/Exam Limitations: no limitations Onset/Duration Of Symptoms: Days (x2) Current Symptoms Are (Timing): Still Present Additional Complaint(s): 46 year old female with previous medical history of kidney stones, who presents to the emergency department with a complaint of left-sided flank pain associated with difficulty urinating ongoing for 2 days. Denied any fever, chills, nausea or vomiting. Patient stated pain became worse around 0130 this morning. PMD: René iBll MD Past Medical History Reviewed: Historical Data, Nursing Documentation, Vital Signs Vital Signs: Last Vital Signs Temp 98.6 F 06/03/17 05:07 Pulse 64 06/03/17 05:07 Resp 18 06/03/17 05:07 BP 121/71 06/03/17 05:07 Pulse Ox 99 06/03/17 05:07 - Medical History PMH: Kidney Stones (6 years ago) Denies: HIV - Surgical History Surgical History: - Family History Family History: States: Unknown Family Hx - Social History Current smoker - smoking cessation education provided: No Alcohol: None Drugs: Denies - Immunization History Hx Tetanus Toxoid Vaccination: No Hx Influenza Vaccination: No Hx Pneumococcal Vaccination: No - Home Medications Home Medications: Ambulatory Orders Medication Instructions Recorded Ibuprofen [Advil] 200 mg PO Q8 PRN 02/06/14 Acetaminophen [Tylenol 325mg tab] 650 mg PO Q4 PRN 09/13/16 Ciprofloxacin HCl [Cipro] 500 mg PO BID #20 tab 03/20/17 Naproxen [Naprosyn] 500 mg PO Q12H #20 tab 03/20/17 Ciprofloxacin HCl [Cipro] 500 mg PO BID #20 tab 05/15/17 Naproxen [Naprosyn] 500 mg PO Q12H #20 tab 05/15/17 Acetaminophen/Hydrocodone Bi 1 tab PO Q8 #12 tab 06/03/17 [Vicodin 300 mg-5 mg] Ibuprofen [Motrin Tab] 600 mg PO Q6 #30 tab 06/03/17 Tamsulosin [Flomax] 0.4 mg PO DAILY #30 cap 06/03/17 - Allergies Allergies/Adverse Reactions: Allergies Allergy/AdvReac Type Severity Reaction Status Date / Time No Known Allergies Allergy Verified 06/03/17 05:07 Review of Systems ROS Statement: Except As Marked, All Systems Reviewed And Found Negative Constitutional: Negative for: Fever, Chills Gastrointestinal: Negative for: Nausea, Vomiting Genitourinary Female: Positive for: Dysuria Musculoskeletal: Positive for: Back Pain (left-sided flank pain) Physical Exam - Reviewed Nursing Documentation Reviewed: Yes Vital Signs Reviewed: Yes - Physical Exam Appears: Positive for: Uncomfortable Head Exam: Positive for: ATRAUMATIC, NORMAL INSPECTION, NORMOCEPHALIC Skin: Positive for: Normal Color Eye Exam: Positive for: Normal appearance ENT: Positive for: Normal ENT Inspection Neck: Positive for: Normal, Painless ROM Cardiovascular/Chest: Positive for: Regular Rate, Rhythm, Chest Non Tender Respiratory: Positive for: Normal Breath Sounds. Negative for: Decreased Breath Sounds, Respiratory Distress Gastrointestinal/Abdominal: Positive for: Normal Exam, Soft. Negative for: Tenderness Back: Positive for: Other (left-sided flank pain). Negative for: Normal Inspection, L CVA Tenderness, R CVA Tenderness Extremity: Positive for: Normal ROM. Negative for: Tenderness Neurologic/Psych: Positive for: Alert (x3), Oriented - Laboratory Results Result Diagrams: 06/03/17 05:47 06/03/17 05:47 - ECG O2 Sat by Pulse Oximetry: 99 (RA) Pulse Ox Interpretation: Normal Medical Decision Making Medical Decision Making: Initial Impression: Kidney stones vs. pyelo Initial Plan: * CT ABD/pelvis without contrast * BMP * Urine * Urine dipstick * CBC * NS 1,000ml IV per 1,000mls/hr * Toradol 30mg IVP * Urine culture * Urinalysis Time: 647 --CT ABD/pelvis FINDINGS: The liver, spleen, gallbladder and pancreas appear grossly normal on this non- contrast study. There is mild left hydronephrosis new from prior.There is a 4 mm calculi in the distal left ureter.There are non obstructing renal calculi. On prior study, there are 3 nonobstructing calculi in the lower pole of the left kidney however on the current there are only 2. Presumably, the distal left ureteral calculi represents passage of the third. Trace fullness of the right renal collecting system. Again seen are low attenuation right renal lesions. Patient motion and lack of intravenous contrast is limiting however some of the areas have Hounsfeld units that are greater than what would be expected for a simple cyst and followup is recommended Pelvic phleboliths are present. The bowel appears grossly normal. IMPRESSION: Obstructing calculus distal left ureter PT. still c/o of pain, will give lidocaine. pending UA, will endorse to dr. raya. Scribe Attestation: Documented by Tahmina Izaguirre, acting as a scribe for Fransico Mistry MD. Provider Scribe Attestation: All medical record entries made by the Scribe were at my direction and personally dictated by me. I have reviewed the chart and agree that the record accurately reflects my personal performance of the history, physical exam, medical decision making, and the department course for this patient. I have also personally directed, reviewed, and agree with the discharge instructions and disposition. Disposition - Clinical Impression Clinical Impression: Renal calculi - Disposition Referrals: René Bill MD [Primary Care Provider] - Disposition Time: 07:00 Condition: STABLE Prescriptions: Acetaminophen/Hydrocodone Bi [Vicodin 300 mg-5 mg] 1 tab PO Q8 #12 tab Ibuprofen [Motrin Tab] 600 mg PO Q6 #30 tab Tamsulosin [Flomax] 0.4 mg PO DAILY #30 cap Forms: [employer] (Turkish) Patient Signed Over To: aPyam Raya Handoff Comments: pending ua and reassessment
[2017-06-03 06:41] LABS: BLOOD UREA NITROGEN 12 mg/dl (7-17); CALCIUM 9.5 mg/dL (8.4-10.2); CARBON DIOXIDE 24 mmol/L (22-30); CHLORIDE 104 mmol/L (98-107); GFR AFRICAN-AMERICAN > 60; GLUCOSE,RANDOM 97 mg/dL (65-105); POTASSIUM 3.9 MMOL/L (3.6-5.0); SODIUM 140 mmol/l (132-148)
[2017-06-03] MEDS ORDERED: Lidocaine 102 MG in Sodium Chloride 0.9% 100 ML IV STA (06:56)
--- NOTE | 2017-06-03 07:08 | ED PDOC ---
- Laboratory Results Result Diagrams: 06/03/17 05:47 06/03/17 05:47 - ECG O2 Sat by Pulse Oximetry: 97 (RA) Pulse Ox Interpretation: Normal Medical Decision Making Medical Decision Makin:00 Patient signed over from Fransico Mistry MD to me pending urinalysis and pain reevaluation. 07:44 Discussed case with urologist, MD Sherita. He recommends discharging the patient on 500 mg BID of Ceftin and Flomax. Also will see patient in follow up appt next Tuesday. 9am the pt reports feeling better and is comfortable w dc. she appears well. disc importance of follow up w uro and returning for any worsening symptoms including fever/chills. she v/u and agrees w plan. Scribe Attestation: Documented by Ana Bill, acting as a scribe for Payam Raya MD. Provider Scribe Attestation: All medical record entries made by the Scribe were at my direction and personally dictated by me. I have reviewed the chart and agree that the record accurately reflects my personal performance of the history, physical exam, medical decision making, and the department course for this patient. I have also personally directed, reviewed, and agree with the discharge instructions and disposition. Disposition - Clinical Impression Clinical Impression: Renal calculi - Disposition Referrals: René Bill MD [Primary Care Provider] - Disposition Time: 09:05 Condition: STABLE Additional Instructions: Please call the urologist today to make an appointment for next Tuesday. Return to the ER immediately for any fever, chills, uncontrolled pain or for any other concerns. Prescriptions: Acetaminophen/Hydrocodone Bi [Vicodin 300 mg-5 mg] 1 tab PO Q8 #12 tab Cefuroxime Axetil [Cefuroxime] 500 mg PO BID #14 tablet Ibuprofen [Motrin Tab] 600 mg PO Q6 #30 tab Tamsulosin [Flomax] 0.4 mg PO DAILY #30 cap Instructions: Renal Colic (ED) Forms: [employer] (Greek) Print Language: VINCENTIAN
[2017-06-03 07:14] LABS: URINE COLOR YELLOW (YELLOW)
[2017-06-03 07:15] LABS: PH,URINE 6.5 (5.0-8.0); URINE BILIRUBIN NEGATIVE (NEGATIVE); URINE BLOOD TRACE (NEGATIVE); URINE GLUCOSE (UA) NEGATIVE (Normal); URINE KETONE NEGATIVE (NEGATIVE); URINE PROTEIN NEGATIVE (NEGATIVE); URINE UROBILINOGEN 0.2 mg/dL (0.2-1.0)
[2017-06-03 07:16] LABS: RBC URINE 3 /hpf (0-3); URINE BACTERIA SMALL (<OCC); URINE LEUKOCYTE ESTERASE MOD Leu/uL (Negative); WBC URINE 16 /hpf (0-5)
[2017-06-03] MEDS ORDERED: Lactated Ringer's 1,000 ML IV SCH (08:00)
[2017-06-03 09:23] VITALS: BP 104/63; PULSE 60; RESP 20; TEMP 98.3; O2SAT 98
--- NOTE | 2017-06-03 09:53 | RAD ---
HISTORY: ureteral stone COMPARISON: No prior. FINDINGS: BOWEL: Nonobstructive bowel gas pattern. No free intrarenal gas is grossly evident. Radiodensities at the left flank may indicate intrarenal calculi. Nonspecific calcifications in the lower right lateral flank. BONES: Normal. OTHER FINDINGS: None. IMPRESSION: Nonobstructive bowel gas pattern. No free intrarenal gas. Intrarenal calcifications may be present at the left flank.
--- NOTE | 2017-06-03 11:07 | CT ---
PROCEDURE: CT Abdomen and Pelvis without intravenous contrast HISTORY: L flank pain, hx of kidney stones COMPARISON: Unenhanced abdomen and pelvis CT exam 09/13/2016. TECHNIQUE: Helical CT of the abdomen and pelvis was performed without oral or intravenous contrast as per referring physician request.. Contrast Dose: None Radiation dose: Total exam DLP = mGy-cm. This CT exam was performed using one or more of the following dose reduction techniques: Automated exposure control, adjustment of the mA and/or kV according to patient size, and/or use of iterative reconstruction technique. FINDINGS: LOWER THORAX: Unremarkable. LIVER: Unremarkable. No gross lesion or ductal dilatation. GALLBLADDER AND BILE DUCTS: Unremarkable. PANCREAS: Unremarkable. No gross lesion or ductal dilatation. SPLEEN: Unremarkable. ADRENALS: Unremarkable. No mass. KIDNEYS AND URETERS: A few tiny punctate intrarenal calculi identified bilaterally with no right hydronephrosis present. There is mild left hydronephrosis and hydroureter caused by 4 mm calculus obstructing the distal left ureter several cm proximal to left ureterovesical junction. A few phleboliths are identified inferior to the level of the current obstructing calculus which have previously been shown in the pelvis on prior CT noted above. VASCULATURE: Unremarkable. No aortic aneurysm. BOWEL: Unremarkable. No obstruction. No gross mural thickening. APPENDIX: Unremarkable. Normal appendix. PERITONEUM: Unremarkable. No free fluid. No free air. LYMPH NODES: Unremarkable. No enlarged lymph nodes. BLADDER: Unremarkable. REPRODUCTIVE: Unremarkable. BONES: No acute fracture. OTHER FINDINGS: None. IMPRESSION: Mild left hydroureteronephrosis caused by 4 mm calculus worsened distal left ureter. Punctate intrarenal calculi identified in both kidneys with no right hydronephrosis appreciated. A 7 mm calculus identified at the lower pole left kidney as well. Further evaluation the remaining solid abdominal viscera is limited due lack of contrast agents. Concordant preliminary report from [facility], 06/01/2017.
== END 2017-06-03 09:23 | disposition home or self-care (01) ==
LOC: H.ER 04:55
DX: N13.2 Hydronephrosis with renal and ureteral calculous obstruction (principal)
CPT/HCPCS: 74000; 74176; 80048; 81003; 81025; 85025; 87086; 87181; 96360; 96374; 99284; J1885; J2001; J7040

== ENCOUNTER 2017-07-16 16:57 | Emergency (ER) | payer MEDICAID ==
[2017-07-16] MEDS ORDERED: Sodium Chloride 0.9% 1,000 ML IV STA (18:39)
--- NOTE | 2017-07-16 18:42 | ED PDOC ---
HPI: General Adult Time Seen by Provider: 07/16/17 18:19 Chief Complaint (Nursing): Flu-like Symptoms Chief Complaint (Provider): Back pain History Per: Patient History/Exam Limitations: no limitations Onset/Duration Of Symptoms: Days (Yesterday) Current Symptoms Are (Timing): Still Present Additional Complaint(s): Pt. with L flank pain and L abd pain. Urgency/freq of urination. No dysuria. Also states body aches, mild headache that is not the worst in her life. No neck pain, chest pain, dyspnea. Denies cough, congestion. Per nursing notes she said yes for the same. Pt. with no numbness, tingles. Past Medical History Reviewed: Nursing Documentation, Vital Signs Vital Signs: Last Vital Signs Temp 103.1 F H 07/16/17 17:18 Pulse 125 H 07/16/17 17:18 Resp 20 07/16/17 17:18 BP 111/68 07/16/17 17:18 Pulse Ox 96 07/16/17 17:18 - Medical History PMH: Kidney Stones (6 years ago) Denies: HIV - Surgical History Surgical History: - Family History Family History: States: Unknown Family Hx - Social History Current smoker - smoking cessation education provided: No Alcohol: None Drugs: Denies - Immunization History Hx Tetanus Toxoid Vaccination: No Hx Influenza Vaccination: No Hx Pneumococcal Vaccination: No - Home Medications Home Medications: Ambulatory Orders Medication Instructions Recorded Ibuprofen [Advil] 200 mg PO Q8 PRN 02/06/14 Acetaminophen [Tylenol 325mg tab] 650 mg PO Q4 PRN 09/13/16 Ciprofloxacin HCl [Cipro] 500 mg PO BID #20 tab 03/20/17 Naproxen [Naprosyn] 500 mg PO Q12H #20 tab 03/20/17 Ciprofloxacin HCl [Cipro] 500 mg PO BID #20 tab 05/15/17 Naproxen [Naprosyn] 500 mg PO Q12H #20 tab 05/15/17 Acetaminophen/Hydrocodone Bi 1 tab PO Q8 #12 tab 06/03/17 [Vicodin 300 mg-5 mg] Cefuroxime Axetil [Cefuroxime] 500 mg PO BID #14 tablet 06/03/17 Ibuprofen [Motrin Tab] 600 mg PO Q6 #30 tab 06/03/17 Tamsulosin [Flomax] 0.4 mg PO DAILY #30 cap 06/03/17 - Allergies Allergies/Adverse Reactions: Allergies Allergy/AdvReac Type Severity Reaction Status Date / Time No Known Allergies Allergy Verified 07/16/17 17:17 Review of Systems ROS Statement: Except As Marked, All Systems Reviewed And Found Negative Gastrointestinal: Positive for: Abdominal Pain Genitourinary Female: Positive for: Frequency Musculoskeletal: Positive for: Back Pain Neurological: Positive for: Headache Physical Exam - Reviewed Nursing Documentation Reviewed: Yes Vital Signs Reviewed: Yes - Physical Exam Appears: Positive for: Non-toxic, No Acute Distress Head Exam: Positive for: ATRAUMATIC, NORMAL INSPECTION, NORMOCEPHALIC Skin: Positive for: Normal Color, Warm, DRY Eye Exam: Positive for: EOMI, Normal appearance, PERRL ENT: Positive for: Normal ENT Inspection Neck: Positive for: Normal, Painless ROM Cardiovascular/Chest: Positive for: Regular Rate, Rhythm Respiratory: Positive for: CNT, Normal Breath Sounds Gastrointestinal/Abdominal: Positive for: Bowel Sounds, Soft, Tenderness (L mid and lwer abd) Back: Positive for: L CVA Tenderness. Negative for: R CVA Tenderness Extremity: Positive for: Normal ROM. Negative for: Tenderness, Pedal Edema Neurologic/Psych: Positive for: Alert, Oriented - ECG O2 Sat by Pulse Oximetry: 96 - Progress ED Course And Treament: 1843: Pt. did not want ct. Advised needed to eval what is going on in abd. Agrees to get ct. 1850: Pt. care signed out to Dr. Benitez. Fu on labs and imaging. Disposition - Clinical Impression Clinical Impression: Abdominal pain - Patient ED Disposition Is Patient to be Admitted: Transfer of Care - Disposition Disposition: Transfer of Care Disposition Time: 18:44 Condition: STABLE Patient Signed Over To: Cindy Benitez
[2017-07-16 19:17] LABS: VENOUS BLOOD GAS BASE EXCESS 1.3 mmol/L (0.0-2.0); VENOUS BLOOD GAS PCO2 36 mmHg (40-60); VENOUS BLOOD GAS PO2 45 mm/Hg (30-55); VENOUS BLOOD PH 7.45 (7.32-7.43)
[2017-07-16 19:33] LABS: ALB/GLOB RATIO 1.1 (1.0-2.1); ALBUMIN 4.1 g/dL (3.5-5.0); ALT/SGPT 25 U/L (9-52); AST/SGOT 29 U/L (14-36); BLOOD UREA NITROGEN 8 mg/dl (7-17); GFR AFRICAN-AMERICAN > 60; GFR NON-AFRICAN AMERICAN > 60; LIPASE 32 U/L (23-300)
--- NOTE | 2017-07-16 19:33 | ED PDOC ---
- Laboratory Results Result Diagrams: 07/16/17 18:50 07/16/17 18:50 - ECG O2 Sat by Pulse Oximetry: 96 (RA) Pulse Ox Interpretation: Normal - Progress Re-evaluation Time: 22:05 Condition: Re-examined, Improved Medical Decision Making Medical Decision Making: Patient signed out to provider at [address] White pending labs and CT abdomen. [address] Abdomen and Pelvis Without Intravenous Contrast CLINICAL HISTORY: 46 years old, female; Pain; Abdominal pain; Flank; Left; Prior surgery; Surgery date: 6+ months; Surgery type: Section. HX kidney stone; Additional info: R/O stone TECHNIQUE: Axial computed tomography images of the abdomen and pelvis without intravenous contrast. All CT scans at this facility use one or more dose reduction techniques, viz.: automated exposure control; ma/kV adjustment per patient size (including targeted exams where dose is matched to indication; i.e. head); or iterative reconstruction technique. Coronal and sagittal reformatted images were created and reviewed. COMPARISON: CT - ABD PELVIS W/O PO OR IV CONT 2017-06-03 06:01 FINDINGS: Lower thorax: Minimal atelectasis. ABDOMEN: Liver: Unremarkable. Gallbladder and bile ducts: No calcified stones. No ductal dilation. Pancreas: Unremarkable. No ductal dilation. Spleen: No splenomegaly. Adrenals: No mass. Kidneys and ureters: Few probable RIGHT renal cysts. Few renal calculi. No hydronephrosis. Stomach and bowel: Few scattered diverticula within colon. No associated inflammatory stranding. Segmental areas of probable underdistention of colon. No definite mural thickening. No obstruction. Appendix: Borderline enlarged appendix, 6-7 mm in diameter. No associated inflammatory stranding. PELVIS: Bladder: Unremarkable. No stones. Reproductive: 3.5 x 3.0 x 2.9 cm hypodense lesion within LEFT ovary. ABDOMEN and PELVIS: Intraperitoneal space: Trace free fluid within pelvis. No free air. Bones/joints: No acute fracture. Soft tissues: Tiny umbilical hernia containing fat. Vasculature: Unremarkable. No aneurysm. Lymph nodes: No pathologically enlarged lymph nodes. IMPRESSION: 1. Probable LEFT ovarian cyst. Consider ultrasound. 2. Borderline enlarged appendix. No inflammation. Clinical correlation is needed. 3. Nonobstructing renal calculi. 4. Incidental/non-acute findings are described above. Addendum created by Tirso Brothers MD on 07/16/2017 9:01 PM Eastern Time ([place] & [place]) Kidneys and ureters: Minimal stranding about RIGHT kidney. Few probable RIGHT renal cysts. Few renal calculi. No hydronephrosis. Reviewed the labs and CT abdomen. Patient is with complicated UTI but appropriate for outpatient treatment. Patient will be called in 2 days for recheck. Documented by Radha Koch acting as a scribe for Cindy Benitez MD. All medical record entries made by the Scribe were at my direction and personally dictated by me. I have reviewed the chart and agree that the record accurately reflects my personal performance of the history, physical exam, medical decision making, and the department course for this patient. I have also personally directed, reviewed, and agree with the discharge instructions and disposition. Disposition - Clinical Impression Clinical Impression: Abdominal pain, UTI (urinary tract infection), Pyelonephritis, Kidney stones - POA Present On Arrival: None - Disposition Referrals: [facility] [[facility]] Disposition: Routine/Home Disposition Time: 22:07 Condition: GOOD Additional Instructions: Take your medications as instructed. Return for worsening or if not improved in 2 days. Follow up with your PCP in 2 days. You will be called in 2 days. Prescriptions: Ciprofloxacin HCl [Cipro] 500 mg PO BID #20 tab Instructions: Urinary Tract Infection in Women (ED) Forms: [employer] (Ukrainian) Print Language: EGYPTIAN
[2017-07-16 19:38] LABS: BASO % 0.1 % (0.0-2.0); HEMOGLOBIN 10.5 g/dL (12.0-16.0); LYMPH # 0.8 K/uL (1.0-4.3); LYMPH % 6.1 % (20.0-40.0); MEAN CELL VOLUME 92.4 fl (81.0-99.0); MEAN CORPUSCULAR HEMOGLOBIN 30.2 pg (27.0-31.0); MEAN CORPUSCULAR HGB CONC 32.7 g/dL (33.0-37.0); MEAN PLATELET VOLUME 8.2 fl (7.2-11.7); MONO # 1.3 K/uL (0.0-0.8); MONO % 10.2 % (0.0-10.0); NEUT # 10.4 K/uL (1.8-7.0); NEUT % 83.6 % (50.0-75.0); PLATELET COUNT 230 K/uL (130-400); RBC 3.47 Mil/uL (3.80-5.20); RED CELL DISTRIBUTION WIDTH 17.2 % (11.5-14.5); WHITE BLOOD COUNT 12.5 K/uL (4.8-10.8)
[2017-07-16] MEDS ORDERED: cefTRIAXone IV 1 gm in Dextros 50 ML IVPB STA (20:11)
[2017-07-16] MEDS ORDERED: Potassium Chloride 20 mEq ER Tab PO ONE ×2 (20:13→20:28)
[2017-07-16] MEDS ORDERED: cefTRIAXone (Rocephin) 1 gm Inj ONE (20:28)
--- NOTE | 2017-07-16 20:28 | CT ---
EXAM: CT Abdomen and Pelvis Without Intravenous Contrast CLINICAL HISTORY: 46 years old, female; Pain; Abdominal pain; Flank; Left; Prior surgery; Surgery date: 6+ months; Surgery type: Section. HX kidney stone; Additional info: R/O stone TECHNIQUE: Axial computed tomography images of the abdomen and pelvis without intravenous contrast. All CT scans at this facility use one or more dose reduction techniques, viz.: automated exposure control; ma/kV adjustment per patient size (including targeted exams where dose is matched to indication; i.e. head); or iterative reconstruction technique. Coronal and sagittal reformatted images were created and reviewed. COMPARISON: CT - ABD PELVIS W/O PO OR IV CONT 2017-06-03 06:01 FINDINGS: Lower thorax: Minimal atelectasis. ABDOMEN: Liver: Unremarkable. Gallbladder and bile ducts: No calcified stones. No ductal dilation. Pancreas: Unremarkable. No ductal dilation. Spleen: No splenomegaly. Adrenals: No mass. Kidneys and ureters: Few probable RIGHT renal cysts. Few renal calculi. No hydronephrosis. Stomach and bowel: Few scattered diverticula within colon. No associated inflammatory stranding. Segmental areas of probable underdistention of colon. No definite mural thickening. No obstruction. Appendix: Borderline enlarged appendix, 6-7 mm in diameter. No associated inflammatory stranding. PELVIS: Bladder: Unremarkable. No stones. Reproductive: 3.5 x 3.0 x 2.9 cm hypodense lesion within LEFT ovary. ABDOMEN and PELVIS: Intraperitoneal space: Trace free fluid within pelvis. No free air. Bones/joints: No acute fracture. Soft tissues: Tiny umbilical hernia containing fat. Vasculature: Unremarkable. No aneurysm. Lymph nodes: No pathologically enlarged lymph nodes. IMPRESSION: 1. Probable LEFT ovarian cyst. Consider ultrasound. 2. Borderline enlarged appendix. No inflammation. Clinical correlation is needed. 3. Nonobstructing renal calculi. 4. Incidental/non-acute findings are described above.
[2017-07-16 20:36] LABS: SQUAMOUS EPITHIAL < 1 /hpf (0-5); URINE BACTERIA MANY (<OCC); URINE BILIRUBIN NEGATIVE (NEGATIVE); URINE BLOOD SMALL (NEGATIVE); URINE CLARITY SLIGHTY-CLOUDY (Clear); URINE COLOR YELLOW (YELLOW); URINE GLUCOSE (UA) NEG (Normal); URINE LEUKOCYTE ESTERASE MOD Leu/uL (Negative); URINE NITRATE POSITIVE (NEGATIVE); URINE PROTEIN NEGATIVE (NEGATIVE); URINE UROBILINOGEN 0.2-1.0 mg/dL (0.2-1.0)
[2017-07-16 20:45] VITALS: PULSE 89
[2017-07-16 22:10] VITALS: BP 124/78; RESP 17; TEMP 98.9; O2SAT 99
[2017-07-16 23:12] LABS: LYMPHOCYTE 4 % (20-50); MONOCYTE 6 % (0-10); NEUTROPHIL 90 % (42-75); PLATELET ESTIMATE NORMAL (NORMAL); TOTAL CELLS COUNTED 100
[2017-07-16 23:13] LABS: ANISOCYTOSIS SLIGHT
== END 2017-07-16 22:10 | disposition home or self-care (01) ==
LOC: H.ER 16:57
DX: N39.0 Urinary tract infection, site not specified (principal); N20.0 Calculus of kidney; N12 Tubulo-interstitial nephritis, not specified as acute or chronic; R50.9 Fever, unspecified
CPT/HCPCS: 74176; 80053; 81003; 81025; 82803; 83690; 85025; 87040; 87086; 87181; 87804; 96365; 96375; 99284; J0696; J1885; J7040

== ENCOUNTER 2018-02-22 08:41 | Emergency (ER) | payer MEDICAID ==
[2018-02-22 08:42] VITALS: BMI 25.7
[2018-02-22 09:55] LABS: BASO % 0.2 % (0.0-2.0); EOS % 0.2 % (0.0-4.0); HEMOGLOBIN 12.4 g/dL (12.0-16.0); LYMPH # 1.2 K/uL (1.0-4.3); LYMPH % 15.3 % (20.0-40.0); MEAN CELL VOLUME 85.2 fl (81.0-99.0); MEAN CORPUSCULAR HEMOGLOBIN 28.8 pg (27.0-31.0); MEAN CORPUSCULAR HGB CONC 33.8 g/dL (33.0-37.0); MEAN PLATELET VOLUME 8.6 fl (7.2-11.7); MONO # 0.8 K/uL (0.0-0.8); MONO % 9.6 % (0.0-10.0); NEUT # 5.8 K/uL (1.8-7.0); NEUT % 74.7 % (50.0-75.0); RBC 4.31 Mil/uL (3.80-5.20); RED CELL DISTRIBUTION WIDTH 13.9 % (11.5-14.5); WHITE BLOOD COUNT 7.8 K/uL (4.8-10.8)
[2018-02-22 10:06] LABS: URINE BACTERIA MOD (<OCC); URINE BILIRUBIN NEGATIVE (NEGATIVE); URINE BLOOD NEGATIVE (NEGATIVE); URINE CLARITY CLEAR (Clear); URINE COLOR YELLOW (YELLOW); URINE GLUCOSE (UA) NEG (Normal); URINE LEUKOCYTE ESTERASE NEG Leu/uL (Negative); URINE PROTEIN NEGATIVE (NEGATIVE); URINE UROBILINOGEN 0.2-1.0 mg/dL (0.2-1.0)
[2018-02-22 10:09] LABS: ALB/GLOB RATIO 1.2 (1.0-2.1); ALT/SGPT 19 U/L (9-52); AST/SGOT 24 U/L (14-36); BLOOD UREA NITROGEN 11 mg/dl (7-17); CALCIUM 9.3 mg/dL (8.4-10.2); GFR NON-AFRICAN AMERICAN > 60
--- NOTE | 2018-02-22 11:39 | ED PDOC ---
HPI: General Adult Time Seen by Provider: 02/22/18 09:10 Chief Complaint (Nursing): Fever Chief Complaint (Provider): body pain, headache, dysuria and lower back pain History Per: Patient History/Exam Limitations: no limitations Onset/Duration Of Symptoms: Days (4x) Current Symptoms Are (Timing): Still Present Additional Complaint(s): 47 year old female with a history of kidney stones presents to the ER for an evaluation of pain in multiple places, Reports of total body pain, headache, dysuria, pain in the ovaries and lower back pain onset for 4 days. Denies vomiting or diarrhea. no fever. is concerned she has kidney stone but is concerned about radiation in a CT scan. PMD: Dr. Bill Past Medical History Reviewed: Historical Data, Nursing Documentation, Vital Signs Vital Signs: Last Vital Signs Temp 99.8 F H 02/22/18 18:02 Pulse 74 02/22/18 18:02 Resp 18 02/22/18 18:02 BP 121/70 02/22/18 18:02 Pulse Ox 98 02/22/18 18:17 - Medical History PMH: Kidney Stones Denies: HIV - Surgical History Surgical History: - Family History Family History: States: Unknown Family Hx - Social History Current smoker - smoking cessation education provided: No Alcohol: None Drugs: Denies - Immunization History Hx Tetanus Toxoid Vaccination: No Hx Influenza Vaccination: No Hx Pneumococcal Vaccination: No - Home Medications Home Medications: Ambulatory Orders Medication Instructions Recorded Ibuprofen [Advil] 200 mg PO Q8 PRN 02/06/14 Acetaminophen [Tylenol 325mg tab] 650 mg PO Q4 PRN 09/13/16 Ciprofloxacin HCl [Cipro] 500 mg PO BID #20 tab 03/20/17 Naproxen [Naprosyn] 500 mg PO Q12H #20 tab 03/20/17 Ciprofloxacin HCl [Cipro] 500 mg PO BID #20 tab 05/15/17 Naproxen [Naprosyn] 500 mg PO Q12H #20 tab 05/15/17 Acetaminophen/Hydrocodone Bi 1 tab PO Q8 #12 tab 06/03/17 [Vicodin 300 mg-5 mg] Cefuroxime Axetil [Cefuroxime] 500 mg PO BID #14 tablet 06/03/17 Ibuprofen [Motrin Tab] 600 mg PO Q6 #30 tab 12/22/17 Tamsulosin [Flomax] 0.4 mg PO DAILY #30 cap 06/03/17 Ciprofloxacin HCl [Cipro] 500 mg PO BID #20 tab 07/16/17 Levofloxacin [Levaquin] 500 mg PO DAILY #7 tablet 02/22/18 - Allergies Allergies/Adverse Reactions: Allergies Allergy/AdvReac Type Severity Reaction Status Date / Time No Known Allergies Allergy Verified 02/22/18 08:44 Review of Systems ROS Statement: Except As Marked, All Systems Reviewed And Found Negative Constitutional: Positive for: Other (body pain). Negative for: Fever, Chills Gastrointestinal: Negative for: Nausea, Vomiting, Diarrhea Genitourinary Female: Positive for: Dysuria Musculoskeletal: Positive for: Back Pain (lower) Neurological: Positive for: Headache Psych: Negative for: Suicidal ideation (homicidal ideation) Physical Exam - Reviewed Nursing Documentation Reviewed: Yes Vital Signs Reviewed: Yes - Physical Exam Appears: Positive for: Non-toxic, No Acute Distress Head Exam: Positive for: ATRAUMATIC, NORMAL INSPECTION, NORMOCEPHALIC Skin: Positive for: Normal Color, Warm, Dry Eye Exam: Positive for: EOMI, Normal appearance, PERRL ENT: Positive for: Normal ENT Inspection Neck: Positive for: Normal, Painless ROM, Supple. Negative for: Decreased ROM Cardiovascular/Chest: Positive for: Regular Rate, Rhythm. Negative for: Murmur Respiratory: Positive for: Normal Breath Sounds. Negative for: Decreased Breath Sounds, Wheezing, Respiratory Distress Gastrointestinal/Abdominal: Positive for: Bowel Sounds, Soft, Tenderness (minor left flank). Negative for: Guarding, Rebound Back: Positive for: Normal Inspection Extremity: Positive for: Normal ROM. Negative for: Tenderness, Pedal Edema, Deformity Neurologic/Psych: Positive for: Alert, Oriented (x3). Negative for: Motor/ Sensory Deficits - Laboratory Results Result Diagrams: 02/22/18 09:43 02/22/18 09:43 - ECG O2 Sat by Pulse Oximetry: 98 (RA) Pulse Ox Interpretation: Normal Medical Decision Making Medical Decision Making: Time: 932 Initial Impression: pain, rule out kidney stone, UTI, pyelonephritis Initial Plan: --ABD & Pelvis --BETA-HCG Quantitative --CMP --CBC w/ Differential --Toradol 30mg --Urine C&S --POC --Urinalysis --Reevaluation Eight months ago, patient had a CT done and she does not want another CT done now except for blood work. Patient refused CT so US ordered now. Time: 1235 --Pelvis/ Transvag US --Renal US Time: 1621 PROCEDURE: Ultrasound of the Kidneys HISTORY: Assess left side for abnormality COMPARISON: CT abdomen and pelvis from 07/16/2017. TECHNIQUE: Grayscale imaging was performed. FINDINGS: RIGHT KIDNEY: Measures: 11.7 cm. Normal in size, contour and echogenicity. There are punctate nonobstructing stones in the kidney. No solid mass lesion or hydronephrosis visualized. There are 2 simple cysts in the upper pole which measure 1.7 x 1.6 x 1.3 cm and 1.3 x 1.1 x 1.1 cm. LEFT KIDNEY: Measures: 12.0 cm. Normal in size, contour and echogenicity. No stone, solid mass lesion or hydronephrosis visualized. OTHER FINDINGS: None. IMPRESSION: 1. Punctate nonobstructing stones in the right kidney. No hydronephrosis. 2. No left hydronephrosis or nephrolithiasis. Time: 1625 PROCEDURE: Pelvis/Trans US HISTORY: left "ovarian"pain COMPARISON: 05/15/2017. TECHNIQUE: Trans abdominal and transvaginal pelvic ultrasound was performed. FINDINGS: UTERUS: Measures 7.1 x 3.7 x 4.6 cm. Anteverted and bulky. There is a 1.1 x 0.8 x 1.2 cm intramural anterior wall fundal fibroid, 1.3 x 1.3 x 1.5 cm intramural anterior wall fibroid superiorly and 0.9 x 0.9 x 0.9 cm posterior wall fibroid superiorly. ENDOMETRIUM: Measures 3.3 mm in diameter. The central endometrial echo complex is normal in appearance. CERVIX: No cervical abnormality identified. RIGHT OVARY: Measures 2.5 x 1.5 x 2.1 cm. No solid mass. Normal flow. There is a 1.1 x 0.7 x 1.4 cm cyst. LEFT OVARY: Measures 2.3 x 1.2 x 1.8 cm. No solid mass. Normal flow. FREE FLUID: No significant free fluid noted. OTHER FINDINGS: None. IMPRESSION: Little interval change in small intramural fundal, anterior and posterior wall fibroids. No evidence for ovarian cyst or torsion. the US tech had delayed transmission of the images, hence the delay in the reporting of findings. pt made aware of the US findings and the lab work basically normal, flu swab negative. pt got cxr as well. pt with fever in the ER. given tylenol. instructed pt to take levaquin for URI/borderline UTI, and to follow up with Dr Bill in 1-2 days pt is agreeable to plan and states she feels better at this time. she tolerated po in the Ed. Scribe Attestation: Documented by Regan Schmitz, acting as a scribe for Subha Montoya MD Provider Scribe Attestation: All medical record entries made by the Scribe were at my direction and personally dictated by me. I have reviewed the chart and agree that the record accurately reflects my personal performance of the history, physical exam, medical decision making, and the department course for this patient. I have also personally directed, reviewed, and agree with the discharge instructions and disposition. Time: 1648 Plan: -- CXR Two Views Time: 1718 -- Influenza A B results come back negative. Time: 1733 -- CXR shows no acute findings. _ Scribe Attestation: Documented by Solomon Aquino acting as a scribe for Subha Montoya MD. Provider Scribe Attestation: All medical record entries made by the Scribe were at my direction and personally dictated by me. I have reviewed the chart and agree that the record accurately reflects my personal performance of the history, physical exam, medical decision making, and the department course for this patient. I have also personally directed, reviewed, and agree with the discharge instructions and disposition. Disposition - Clinical Impression Clinical Impression: Fever in adult, UTI (urinary tract infection) - Patient ED Disposition Is Patient to be Admitted: No Counseled Patient/Family Regarding: Studies Performed, Diagnosis, Need For Followup - Disposition Disposition: Routine/Home Disposition Time: 18:00 Condition: IMPROVED Additional Instructions: follow up with your primary doctor Dr Bill in 1-2 days also follow up with your water treatment specialist for fibroids return to the ED with any worsening or concerning symptoms take tylenol for pain Prescriptions: Levofloxacin [Levaquin] 500 mg PO DAILY #7 tablet Instructions: Urinary Tract Infection, Adult (DC), Fever, Adult (DC) Forms: [facility] (Lebanese)
--- NOTE | 2018-02-22 16:23 | US ---
Date of service: 02/22/2018 PROCEDURE: Ultrasound of the Kidneys HISTORY: Assess left side for abnormality COMPARISON: CT abdomen and pelvis from 07/16/2017. TECHNIQUE: Grayscale imaging was performed. FINDINGS: RIGHT KIDNEY: Measures: 11.7 cm. Normal in size, contour and echogenicity. There are punctate nonobstructing stones in the kidney. No solid mass lesion or hydronephrosis visualized. There are 2 simple cysts in the upper pole which measure 1.7 x 1.6 x 1.3 cm and 1.3 x 1.1 x 1.1 cm. LEFT KIDNEY: Measures: 12.0 cm. Normal in size, contour and echogenicity. No stone, solid mass lesion or hydronephrosis visualized. OTHER FINDINGS: None. IMPRESSION: 1. Punctate nonobstructing stones in the right kidney. No hydronephrosis. 2. No left hydronephrosis or nephrolithiasis.
--- NOTE | 2018-02-22 16:28 | US ---
Date of service: 02/22/2018 HISTORY: left "ovarian"pain COMPARISON: 05/15/2017. TECHNIQUE: Trans abdominal and transvaginal pelvic ultrasound was performed. FINDINGS: UTERUS: Measures 7.1 x 3.7 x 4.6 cm. Anteverted and bulky. There is a 1.1 x 0.8 x 1.2 cm intramural anterior wall fundal fibroid, 1.3 x 1.3 x 1.5 cm intramural anterior wall fibroid superiorly and 0.9 x 0.9 x 0.9 cm posterior wall fibroid superiorly. ENDOMETRIUM: Measures 3.3 mm in diameter. The central endometrial echo complex is normal in appearance. CERVIX: No cervical abnormality identified. RIGHT OVARY: Measures 2.5 x 1.5 x 2.1 cm. No solid mass. Normal flow. There is a 1.1 x 0.7 x 1.4 cm cyst. LEFT OVARY: Measures 2.3 x 1.2 x 1.8 cm. No solid mass. Normal flow. FREE FLUID: No significant free fluid noted. OTHER FINDINGS: None. IMPRESSION: Little interval change in small intramural fundal, anterior and posterior wall fibroids. No evidence for ovarian cyst or torsion.
--- NOTE | 2018-02-22 17:41 | RAD ---
HISTORY: COMPARISON: 09/14/2016. TECHNIQUE: Chest PA and lateral FINDINGS: LINES AND TUBES: None. LUNG AND PLEURA: The lungs are well inflated and clear. No pleural effusion or pneumothorax. HEART AND MEDIASTINUM: The heart is not enlarged. The hilar and mediastinal contours are within normal limits. SKELETAL STRUCTURES: The bony structures are within normal limits for the patient's age. VISUALIZED UPPER ABDOMEN: Normal. OTHER FINDINGS: None. IMPRESSION: No active pulmonary disease.
[2018-02-22 18:03] VITALS: BP 121/70; PULSE 74; RESP 18; TEMP 99.8
[2018-02-22 18:11] VITALS: O2SAT 98
== END 2018-02-22 18:10 | disposition home or self-care (01) ==
LOC: H.ER 08:41
DX: R50.9 Fever, unspecified (principal); N39.0 Urinary tract infection, site not specified; N20.0 Calculus of kidney
CPT/HCPCS: 71046; 76770; 76830; 76856; 80053; 81003; 81025; 84702; 85025; 87086; 87181; 87804; 96374; 99285; J1885